=== PATIENT | female | born 1970 | race Caucasian/White ===

== ENCOUNTER 2017-01-10 13:54 | Emergency (ER) | payer OTHER, BC ==
[~2017-01-10] VITALS: Ht 167.6 cm; Wt 130.0 kg
[~2017-01-10 13:54] MED LIST: CIPR-255 PO
[2017-01-10 13:57] VITALS: TEMP 36.9; Ht 167.6 cm; Wt 130.0 kg
[2017-01-10] MEDS ORDERED: SODIUM CHLORIDE 0.9% 1000ML 1,000 ML IV SCH (14:20)
[2017-01-10 14:34] LABS: BASO % 0.4 %; BASO ABS # 0.02 K/uL (0-0.2); COMPLETE YES; EOS % 1.7 %; HEMATOCRIT 40.8 % (37-47); LYMPH % 26.1 %; MEAN CELL VOLUME 80.6 fL (80-100); MEAN CORPUSCULAR HEMOGLOBIN 26.3 pg (25-34); MEAN CORPUSCULAR HGB CONC 32.6 g/dl (32-36); MEAN PLATELET VOLUME 9.2 fL (7.4-10.4); MONO % 6.1 %; NEUT % 65.7 %; PLATELET COUNT 193 K/uL (130-400); RED BLOOD COUNT 5.06 M/uL (4.2-5.4)
[2017-01-10 14:35] VITALS: O2SAT 94
[2017-01-10 14:40] LABS: CALCIUM 8.9 mg/dl (8.5-10.1); CREATININE 0.74 mg/dl (0.60-1.20); POTASSIUM 3.6 mmol/L (3.5-5.1)
[2017-01-10 14:43] LABS: PARTIAL THROMBOPLASTIN RATIO 1.1; PROTHROMBIN TIME (PATIENT) 10.5 SECONDS (9.0-12.0)
[2017-01-10] MEDS ORDERED: FERR1TAB13 PO (14:49)
--- NOTE | 2017-01-10 15:37 | DIAGNOSTIC IMAGING REPORT ---
CT SCAN OF THE BRAIN WITHOUT IV CONTRAST CLINICAL HISTORY: Strokelike symptoms. Right facial numbness. COMPARISON STUDY: No priors. TECHNIQUE: Unenhanced axial CT scan of the brain is performed from the vertex to the skull base. A dose lowering technique was utilized adhering to the principles of ALARA. CT DOSE: 1915.68 mGycm FINDINGS: Brain parenchyma: The brain parenchyma is normal in appearance. There is no hemorrhage, mass effect, or evidence of acute territorial ischemia by CT criteria. Zabala-white matter is preserved. No extra-axial fluid collection is seen. Ventricles, sulci, cisterns: Normal in configuration. Intracranial vasculature: The visualized intracranial vasculature at the skull base is normal in appearance. Calvarium: Unremarkable. Sinuses and mastoids: The visualized paranasal sinuses are clear. The mastoid air cells are well pneumatized. Orbits: The bony orbits are grossly intact. IMPRESSION: There is no hemorrhage, mass effect, or evidence of acute territorial ischemia by CT criteria. Electronically signed by: Crow Mead M.D. 01/10/2017 3:36 PM Dictated Date/Time: 01/10/2017 3:34 PM
[2017-01-10 17:05] LABS: LYME DISEASE AB IGG NEG (NEG); LYME DISEASE AB IGM NEG (NEG)
[2017-01-10 17:20] VITALS: BP 137/98; PULSE 97; O2SAT 96
--- NOTE | 2017-01-10 20:01 | EMERGENCY ROOM VISIT NOTE ---
History Report prepared by Edgardo: Joni Colbert Under the Supervision of: Dr. Jason Franklin M.D. First contact with patient: 14:12 Chief Complaint: NEURO SYMPTOMS Stated Complaint: RT SIDE FACIAL NUMBNESS Nursing Triage Summary: pt ambulatory to room a12a. pt reports right sided facial numbness that started yesterday between [id number], numbness went away but returned again at approx 1100 today. History of Present Illness The patient is a 46 year old female who presents to the Emergency Room with complaints of intermittent right sided lower facial numbness that began yesterday evening. At this time, her right lower face began to experience a "pins and needles" sensation with some mild numbness. She describes this similarly to a Dentist using Novocaine. Her numbness last night was mildly waxing and waning but ended by the time she went to sleep. However, the sensation came back at 11 am this morning. She notes that her tongue feels "thick" on her right side. She denies any other numbness, facial droop, weakness , or trouble walking/talking/thinking/swallowing. She also denies any tick bites or rashes. She notes that she occasionally gets a mid-brow pressure-like sinus headache, but did not have one today. 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 Her current numbness symptoms have never happened to her before. Source of History: patient Onset: yesterday evening Position: head (right lower face) Symptom Intensity: mild Quality: numbness Timing: intermittent Associated Symptoms: No headache, No weakness, No rash Note: She denies any trouble talking/walking/speaking/thinking. Review of Systems See HPI for pertinent positives & negatives. A total of 10 systems reviewed and were otherwise negative. Past Medical & Surgical Medical Problems: (1) Non-Hodgkin lymphoma (2) Sepsis (3) Tachycardia with 141 - 160 beats per minute (4) Upper abdominal pain Family History Diabetes mellitus Social History Smoking Status: Never Smoker Smokeless Tobacco Use: No Drug Use: none Marital Status: Housing Status: lives with family Occupation Status: employed Current/Historical Medications Scheduled Ferrous Sulfate (Kp Ferrous Sulfate), 1 TAB PO TID Allergies Coded Allergies: Erythromycin (Verified Adverse Reaction, Mild, NAUSEA AND VOMITING, ) Hydrocodone (Verified Adverse Reaction, Mild, NAUSEA AND VOMITING, 10/26/15 ) Physical Exam Vital Signs Date Time Temp Pulse Resp B/P (MAP) Pulse Ox O2 Delivery O2 Flow Rate FiO2 01/10/17 17:20 97 20 137/98 96 01/10/17 16:05 108 20 148/100 96 Room Air 01/10/17 14:38 97 01/10/17 14:36 104 18 130/91 96 Room Air 01/10/17 14:35 94 Room Air 01/10/17 13:57 36.9 112 20 159/117 97 Room Air Physical Exam Constitutional: Vital signs reviewed. Eyes: Pupils are equal round reactive to light. Conjunctiva are noninjected. ENT: Pharynx is clear without erythema or exudate. Mucous membranes are moist. Neck supple without meningeal signs. Respiratory: Clear to auscultation bilaterally. Breath sounds are equal bilaterally. Cardiovascular: Regular rate and rhythm. No rubs or gallops. GI: Soft, nondistended and nontender. Bowel sounds are present. Musculoskeletal: No peripheral edema. No lower extremity tenderness. Integumentary: No cyanosis. Neurological: The patient is awake and alert. Cranial nerves II-XII are intact. Motor is 5 out of 5 all extremities. Sensation is intact to light touch all extremities. Normal speech. No pronator drift. Psychiatric: Normal affect. Medical Decision & Procedures ER Provider Diagnostic Interpretation: Radiology results as stated below per my review and the radiologist's interpretation: CT SCAN OF THE BRAIN WITHOUT IV CONTRAST CLINICAL HISTORY: Strokelike symptoms. Right facial numbness. COMPARISON STUDY: No priors. TECHNIQUE: Unenhanced axial CT scan of the brain is performed from the vertex to the skull base. A dose lowering technique was utilized adhering to the principles of ALARA. CT DOSE: 1915.68 mGycm FINDINGS: Brain parenchyma: The brain parenchyma is normal in appearance. There is no hemorrhage, mass effect, or evidence of acute territorial ischemia by CT criteria. Zabala-white matter is preserved. No extra-axial fluid collection is seen. Ventricles, sulci, cisterns: Normal in configuration. Intracranial vasculature: The visualized intracranial vasculature at the skull base is normal in appearance. Calvarium: Unremarkable. Sinuses and mastoids: The visualized paranasal sinuses are clear. The mastoid air cells are well pneumatized. Orbits: The bony orbits are grossly intact. IMPRESSION: There is no hemorrhage, mass effect, or evidence of acute territorial ischemia by CT criteria. Electronically signed by: Crow Mead M.D. 01/10/2017 3:36 PM Dictated Date/Time: 01/10/2017 3:34 PM Laboratory Results 01/10/17 14:12 Red Blood Count 5.06, Mean Corpuscular Volume 80.6, Mean Corpuscular Hemoglobin 26.3, Mean Corpuscular Hemoglobin Concent 32.6, Mean Platelet Volume 9.2, Neutrophils (%) (Auto) 65.7, Lymphocytes (%) (Auto) 26.1, Monocytes (%) (Auto) 6.1, Eosinophils (%) (Auto) 1.7, Basophils (%) (Auto) 0.4, Neutrophils # (Auto) 3.02, Lymphocytes # (Auto) 1.20, Monocytes # (Auto) 0.28, Eosinophils # (Auto) 0.08, Basophils # (Auto) 0.02 01/10/17 14:12 Test 01/10/17 14:12 White Blood Count 4.60 K/uL (4.8-10.8) Red Blood Count 5.06 M/uL (4.2-5.4) Hemoglobin 13.3 g/dL (12.0-16.0) Hematocrit 40.8 % (37-47) Mean Corpuscular Volume 80.6 fL (80-100) Mean Corpuscular Hemoglobin 26.3 pg (25-34) Mean Corpuscular Hemoglobin Concent 32.6 g/dl (32-36) Platelet Count 193 K/uL (130-400) Mean Platelet Volume 9.2 fL (7.4-10.4) Neutrophils (%) (Auto) 65.7 % Lymphocytes (%) (Auto) 26.1 % Monocytes (%) (Auto) 6.1 % Eosinophils (%) (Auto) 1.7 % Basophils (%) (Auto) 0.4 % Neutrophils # (Auto) 3.02 K/uL (1.4-6.5) Lymphocytes # (Auto) 1.20 K/uL (1.2-3.4) Monocytes # (Auto) 0.28 K/uL (0.11-0.59) Eosinophils # (Auto) 0.08 K/uL (0-0.5) Basophils # (Auto) 0.02 K/uL (0-0.2) RDW Standard Deviation 50.1 fL (36.4-46.3) RDW Coefficient of Variation 16.9 % (11.5-14.5) Immature Granulocyte % (Auto) 0.0 % Immature Granulocyte # (Auto) 0.00 K/uL (0.00-0.02) Prothrombin Time 10.5 SECONDS (9.0-12.0) Prothromb Time International Ratio 1.0 (0.9-1.1) Activated Partial Thromboplast Time 28.0 SECONDS (21.0-31.0) Partial Thromboplastin Ratio 1.1 Anion Gap 7.0 mmol/L (3-11) Est Creatinine Clear Calc Drug Dose 132.7 ml/min Estimated GFR () 113.4 Estimated GFR (Non- 97.8 BUN/Creatinine Ratio 13.0 (10-20) Calcium Level 8.9 mg/dl (8.5-10.1) Lyme Disease IgG Antibody NEG (NEG) Lyme Disease IgM Antibody NEG (NEG) Laboratory results as reviewed by me. Medications Administered Medications (Trade) Dose Ordered Sig/Anika Route Start Time Stop Time Status Last Admin Dose Admin Sodium Chloride 1,000 ml @ 50 mls/hr Q20H IV 01/10/17 14:20 01/10/17 18:49 DC 01/10/17 14:38 50 MLS/HR ECG Indication: other (Neuro symptoms) Rate (beats per minute): 100 Rhythm: normal sinus Findings: no acute ischemic change, no ectopy ED Course 1412: The patient was evaluated in room A12A. A complete history and physical exam was performed. 1420: Ordered Sodium Chloride 1000 ml @ 50 mls/hr IV 1620: Upon reevaluation, the patient's numbness is almost gone. She still has a small amount toward her right eye. 1630: I spoke with Dr. Darden of Neurology at this time. He believes that this is not a stroke and the patient should follow up in the clinic soon. The patient is happy with this plan. We are still waiting for her lyme test results. 1713: I reviewed return instructions with the patient. Upon reevaluation, the patient appeared to have improvement of her symptoms. I discussed tonight's findings with her. She verbalized agreement of the treatment plan. She was discharged home. Medical Decision This is a 46-year-old female who presents with numbness to the right side of her lower face. Differential diagnosis includes paresthesias, demyelinating disease, intracranial mass, metabolic derangement, Lyme disease, Bailey's palsy, CVA. I did perform a limited focused review of portions of the patient's old chart on the electronic medical record. The patient has had no recent pertinent visits to this hospital. I did evaluate the patient as noted above. The patient is neurologically intact. She has no deficits on my examination. She does have a subjective feeling of dysesthesia to the lower half of her right face. IV access was established. The patient was placed on a continuous manager monitoring. I did order and personally review the patient's 12-lead EKG as described above. I did order and review the patient's blood work as noted in the electronic medical record. Lyme testing is negative. I did order a CT of the head. I did review the images myself as well as the radiology report as described above. There is no evidence of acute abnormality. I did reassess the patient. She states the numbness is almost resolved. She just has a slight bit of dysesthesia near her eye. I did discuss the test results with her. I did recommend close follow up with neurology. I did review discharge instructions with her. I did discuss case with Dr. Darden of neurology who will be able to follow up with her in the clinic. She was discharged in good condition. Medication Reconcilliation Current Medication List: was personally reviewed by me Blood Pressure Screening Patient's blood pressure: Elevated blood pressure Blood pressure disposition: Referred to PCP Consults Time Called: 1625 Consulting Physician: Dr. Darden - Neurology Returned Call: 1630 We discussed the patient's case. They believe that it is not a stroke. They recommended the patient follow up in the clinic in the near future. Impression Primary Impression: Dysesthesia of face Scribe Attestation The scribe's documentation has been prepared under my direct and personally reviewed by me in its entirety. I confirm that the note above accurately reflects all work, treatment, procedures, and medical decision making performed by me. Departure Information Dispostion Home / Self-Care Referrals Venita Godoy D.O. (PCP) Adelso, Margarito A., M.D. Forms HOME CARE DOCUMENTATION FORM, IMPORTANT VISIT INFORMATION, WORK / SCHOOL INSTRUCTIONS Patient Instructions ED Paraesthesias, My [facility] Additional Instructions You have been examined and treated today on an emergency basis only. This is not a substitute for, or an effort to provide, complete comprehensive medical care. It is impossible to recognize and treat all injuries or illnesses in a single emergency department visit. It is therefore important that you follow up closely with your physician and Dr. Darden of neurology. Call as soon as possible for an appointment. Return for worsening symptoms or if you develop fever, numbness or weakness on one side of your body, difficulties with your speech or walking, facial droop or any other concerning symptoms.
== END 2017-01-10 17:22 | disposition home or self-care (01) ==
LOC: C.EDB 13:56 → C.EDA 17:22
DX: R20.8 Other disturbances of skin sensation (principal); C85.91 Non-Hodgkin lymphoma, unspecified, lymph nodes of head, face, and neck; Z83.3 Family history of diabetes mellitus

== ENCOUNTER → 2017-03-16 | Outpatient (CLI) | payer OTHER, BC ==
[~2017-03-16] MED LIST changes: -CIPR-255 PO; +FERR1TAB13 PO
--- NOTE | 2017-03-17 17:05 | EEG Procedure Note ---
EEG Procedure Note Date of Service Mar 16, 2017. Start / End Times Start Time: 9:14 AM End Time: 9:35 AM Referring Physician Margarito Darden History This is a 46-year-old female with right facial numbness and tingling and a history of a left temporal bone lesion. EEG for further evaluation of possible focal seizures. Home Medication List Scheduled Ferrous Sulfate (Kp Ferrous Sulfate), 1 TAB PO TID Description This is a 21 electrode EEG with a single channel dedicated to limited EKG. The electrodes were placed in accordance with the International 10-20 system. At the start of the recording the patient was in an awake state. Background was well organized and composed of symmetric mixed alpha and beta frequencies. There was a symmetric well-formed moderate amplitude 9-10Hz posterior dominant rhythm that was reactive to eye opening and closure. Hyperventilation was not done. Intermittent photic stimulation at various frequencies produced no abnormalities. Sleep sleep was indicated by symmetric sleep spindles. Interpretation This is a normal awake and asleep routine EEG. There was no electrographic seizures, focal slowing or epileptiform discharges. Clinical Correlation A normal EEG does not rule out epilepsy if there is a strong clinical suspicion.
== END | disposition home or self-care (01) ==
LOC: C.NEUR 08:55
PROVIDERS: ATTEND Psychiatry & Neurology Neurology
DX: R20.0 Anesthesia of skin (principal); R20.2 Paresthesia of skin

== ENCOUNTER → 2017-03-23 | Outpatient (CLI) | payer OTHER, BC ==
[~2017-03-23] MED LIST changes: +ALBU18002 INH; +AMOX875T PO; +CHOL1000 PO; +DICY10CA12 PO; +ERGO500037 PO; +GADAVIST IV PRN
--- NOTE | 2017-03-23 13:46 | DIAGNOSTIC IMAGING REPORT ---
NECK MRA HISTORY: Right facial numbness. 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 All measurements were calculated based on NASCET criteria. COMPARISON STUDY: None. FINDINGS: The aortic arch and proximal great vessels are widely patent. There is no significant stenosis, occlusion, or dissection identified within the bilateral common carotid, internal carotid, or vertebral arteries. IMPRESSION: No significant stenosis, occlusion, or dissection identified within the carotid or vertebral arteries. Electronically signed by: Darrell Stuart M.D. 03/23/2017 1:45 PM Dictated Date/Time: 03/23/2017 1:41 PM
--- NOTE | 2017-03-23 22:30 | DIAGNOSTIC IMAGING REPORT ---
MR ANGIOGRAM OF THE BRAIN CLINICAL HISTORY: Strokelike symptoms. Right facial numbness. COMPARISON STUDY: MRI of the brain dated 01/25/2017. TECHNIQUE: 3-D [id number] MR angiography of the intracranial circulation is performed. 3-D tumble views are created and assessed. IV contrast was not administered for this examination. FINDINGS: The internal carotid arteries are widely patent bilaterally, as are the anterior and middle cerebral arteries. The vertebrobasilar system and posterior cerebral arteries are widely patent. The vertebral arteries are codominant. There is no aneurysm, high-grade stenosis, or focal vessel cutoff seen throughout the intracranial circulation. The brain parenchyma is normal as visualized. IMPRESSION: Unremarkable MR angiogram of the brain. Electronically signed by: Crow Mead M.D. 03/23/2017 10:28 PM Dictated Date/Time: 03/23/2017 10:27 PM
== END | disposition home or self-care (01) ==
LOC: C.MRI 12:35
PROVIDERS: ATTEND Psychiatry & Neurology Neurology
DX: G46.3 Brain stem stroke syndrome (principal)

== ENCOUNTER → 2017-06-21 | Day surgery (SDC) | payer OTHER, BC ==
[2017-06-09 08:25] VITALS: BMI 45.0
[~2017-06-21] VITALS: Ht 167.6 cm; Wt 127.3 kg
[~2017-06-21] MED LIST changes: -AMOX875T PO; -CHOL1000 PO; -DICY10CA12 PO; -ERGO500037 PO; -GADAVIST IV PRN; +LIDOCAINE HCL 2% 2 ML VIAL (20MG/ML) ONE; +MIDAZOLAM HCL 1 MG/ML 2ML VIAL ONE; +PROPOFOL IV EMULSION 10 MG/ML 20 ML VIAL IV ONE; +SODIUM CHLORIDE 0.9% 500ML 500 ML IV ONE
[2017-06-21 13:07] VITALS: Ht 167.6 cm; Wt 127.3 kg
--- NOTE | 2017-06-21 13:30 | Endo History and Physical ---
History & Physical Date of Service: Jun 21, 2017. Chief Complaint: Referring Physician: History of Present Illness Hx of recurrent diverticulitis, last one in 04/2017 Past Medical History Gynecological Problems, Cancer Past Surgical History Hx Cardiac Surgery: No Hx Internal Defibrillator: No Hx Pacemaker: No Hx Abdominal Surgery: Yes (EXPLORATORY LAP) Hx of Implantable Prosthesis: No Hx Post-Op Nausea and Vomiting: Yes Hx Cancer Surgery: Yes (FINE NEEDLE ASPIRATION, THROAT LESION BIOPSY) Hx Thoracic Surgery: No Hx Orthopedic: No Hx Urinary Tract Surgery: No Family History None Social History Smoking Status: Never Smoker Hx Substance Use: No Hx Alcohol Use: Yes (OCCASIONAL) Allergies Coded Allergies: Erythromycin (Verified Adverse Reaction, Mild, NAUSEA AND VOMITING, ) Hydrocodone (Verified Adverse Reaction, Mild, NAUSEA AND VOMITING, 06/09/17 ) Current Medications Reported Home Medications Medications Dose Route/Sig Max Daily Dose Days Date Category Dose Instructions Proair Respiclick (Albuterol Sulfate) 108 Mcg/Act Aer 2 Puffs INH Q4H PRN 06/09/17 Reported Kp Ferrous Sulfate (Ferrous Sulfate) 325 Mg Tab 1 Tab PO DAILY 01/10/17 Reported TAKES WHEN REMEMBERS Vital Signs Weight (Kilograms): 127.27 Height (Feet): 5 Height (Inches): 6 Physical Exam General Appearance: no apparent distress Respiratory/Chest: Auscultation: breath sounds normal Cardiovascular: Heart Auscultation: RRR Abdomen: Inspection & Palpation: soft Liver: non-tender Assessment and Plan Stable for colonoscopy
--- NOTE | 2017-06-21 14:57 | GI REPORT ---
Procedure Date: 06/21/2017 2:26 PM Procedure: Colonoscopy Indications: Follow-up of diverticulitis Medicines: Monitored Anesthesia Care Complications: No immediate complications. Estimated Blood Loss: Estimated blood loss: none. Procedure: Pre-Anesthesia Assessment: - Prior to the procedure, a History and Physical was performed, and patient medications and allergies were reviewed. The patient is competent. The risks and benefits of the procedure and the sedation options and risks were discussed with the patient. All questions were answered and informed consent was obtained. Patient identification and proposed procedure were verified by the physician and the nurse in the procedure room. Mental Status Examination: alert and oriented. Airway Examination: normal oropharyngeal airway and neck mobility. Respiratory Examination: clear to auscultation. CV Examination: normal. ASA Grade Assessment: II - A patient with mild systemic disease. After reviewing the risks and benefits, the patient was deemed in satisfactory condition to undergo the procedure. The anesthesia plan was to use monitored anesthesia care (MAC). Immediately prior to administration of medications, the patient was re-assessed for adequacy to receive sedatives. The heart rate, respiratory rate, oxygen saturations, blood pressure, adequacy of pulmonary ventilation, and response to care were monitored throughout the procedure. The physical status of the patient was re-assessed after the procedure. After I obtained informed consent, the scope was passed under direct vision. Throughout the procedure, the patient's blood pressure, pulse, and oxygen saturations were monitored continuously. The scope was introduced through the anus and advanced to the terminal ileum. The colonoscopy was performed without difficulty. The patient tolerated the procedure well. The quality of the bowel preparation was good. The terminal ileum, ileocecal valve, appendiceal orifice, and rectum were photographed. Findings: The perianal and digital rectal examinations were normal. The terminal ileum appeared normal. An area of granular mucosa was found in the cecum. Biopsies were taken with a cold forceps for histology. Verification of patient identification for the specimen was done by the physician and nurse using the patient's name and date. Scattered small and large-mouthed diverticula were found in the sigmoid colon. Non-bleeding internal hemorrhoids were found during retroflexion. The hemorrhoids were small. Impression: - The examined portion of the ileum was normal. - Granularity in the cecum. Biopsied. - Diverticulosis in the sigmoid colon. - Non-bleeding internal hemorrhoids. Recommendation: - Discharge patient to home. - Await pathology results. - Repeat colonoscopy in 5 years for screening purposes. - Return to referring physician. - High fiber diet. - Use fiber, for example Citrucel, Fibercon, Konsyl or Metamucil. Randall Negron MD 06/21/2017 2:57:08 PM This report has been signed electronically. Note Initiated On: 06/21/2017 2:26 PM I attest to the content of the Intraoperative Record and orders documented therein, exceptions below
--- NOTE | 2017-06-21 14:58 | Discharge Instructions ---
Endoscopy Patient Instructions Date / Procedure(s) Performed Jun 21, 2017. Colonoscopy Allergy Information Coded Allergies: Erythromycin (Verified Adverse Reaction, Mild, NAUSEA AND VOMITING, ) Hydrocodone (Verified Adverse Reaction, Mild, NAUSEA AND VOMITING, 06/09/17 ) Discharge Date / Findings Jun 21, 2017. Diverticulosis. Provider Instructions Activity Restrictions - No exercising or heavy lifting for 24 hours. - Do not drink alcohol the day of the procedure. - Do not drive a car or operate machinery until the day after the procedure. - Do not make any important decisions or sign important papers in 24 hours after the procedure. Following Day: - Return to full activity which may include returning to work/school. Diet Start your diet with liquids and light foods (jello, soup, juice, toast). Then eat your usual diet if not nauseated. Treatment For Common After Affects For mild abdominal pain, bloating, or excessive gas: - Rest - Eat lightly - Lie on right side Follow-Up Information Follow-up with Dr. Venita Godoy as scheduled Anesthesia Information What You Should Know You have had a procedure that required some medicine to reduce anxiety and discomfort. This treatment is called moderate sedation. After receiving the treatment, you may be sleepy, but you will be able to breathe on your own. The effects of the treatment may last for several hours. Follow these instructions along with Activity/Diet recommendations noted above: * Do NOT do anything where dizziness or clumsiness would be dangerous. * Rest quietly at home today, then you can be up and about tomorrow. * Have a responsible person stay with you the rest of today. * You may have had an I.V. today. If so, you may take the dressing off later today. Recommendations Call your doctor if: * Trouble breathing * Continuous vomiting for more than 24 hours * Temperature above 101 degrees * Severe abdominal pain or bloating * Pain not relieved by pain medicine ordered * There is increased drainage or redness from any incision * A large amount of rectal bleeding greater than 2-3 tablespoons. (If you had a polyp/s removed or have hemorrhoids, a small amount of blood - from the rectum is to be expected.) * You have any unanswered questions or concerns. IN THE EVENT OF A SERIOUS EMERGENCY, GO TO THE NEAREST EMERGENCY ROOM Your discharge instructions were prepared by provider Randall Negron. Patient Instructions Signature Page Annelise Maloney Patient (or Guardian) Signature/Date: I have read and understand the instructions given to me by my caregivers. Caregiver/RN/Doctor Signature/Date: The above-named patient and/or guardian has received patient instructions on this date. + Original Patient Signature Page (only) stays with chart. Please make copy for patient.
[2017-06-21 15:23] VITALS: BP 152/96; PULSE 91; O2SAT 100
--- NOTE | 2017-06-21 16:14 | Anesthesiology Progress Note ---
Anesthesia Post Op Note Date & Time Jun 21, 2017 at 16:14 Vital Signs Pain Intensity: 0 Vital Signs Past 12 Hours Date Time Temp Pulse Resp B/P (MAP) Pulse Ox O2 Delivery O2 Flow Rate FiO2 06/21/17 15:23 91 18 152/96 (114) 100 Room Air 06/21/17 15:08 90 18 162/100 (120) 100 Room Air 06/21/17 14:53 93 18 163/94 (117) 100 Room Air 06/21/17 13:34 36.7 92 18 150/92 (111) 98 Room Air Notes Mental Status: alert / awake / arousable, participated in evaluation Pt Amnestic to Procedure: Yes Nausea / Vomiting: adequately controlled Pain: adequately controlled Airway Patency, RR, SpO2: stable & adequate BP & HR: stable & adequate Hydration State: stable & adequate Anesthetic Complications: no major complications apparent
== END | disposition home or self-care (01) ==
LOC: C.GI 13:00
PROVIDERS: ATTEND Student in an Organized Health Care Education/Training Program
DX: K57.30 Diverticulosis of large intestine without perforation or abscess without bleeding (principal); E66.01 Morbid (severe) obesity due to excess calories; Z68.42 Body mass index [BMI] 45.0-49.9, adult; Z88.1 Allergy status to other antibiotic agents; Z88.5 Allergy status to narcotic agent; K64.8 Other hemorrhoids

== ENCOUNTER 2017-11-16 12:45 | Emergency (ER) | payer OTHER, BC ==
[~2017-11-16] VITALS: Ht 167.6 cm; Wt 125.0 kg
[~2017-11-16 12:45] MED LIST changes: -LIDOCAINE HCL 2% 2 ML VIAL (20MG/ML) ONE; -MIDAZOLAM HCL 1 MG/ML 2ML VIAL ONE; -PROPOFOL IV EMULSION 10 MG/ML 20 ML VIAL IV ONE; -SODIUM CHLORIDE 0.9% 500ML 500 ML IV ONE
[2017-11-16 12:52] VITALS: BP 174/87; PULSE 102; TEMP 37.2; O2SAT 98; Ht 167.6 cm; Wt 125.0 kg
--- NOTE | 2017-11-16 13:23 | EMERGENCY ROOM VISIT NOTE ---
History Report prepared by Edgardo: Eliot Caal Under the Supervision of: Dr. Bebeto Harper M.D. First contact with patient: 13:06 Chief Complaint: FLANK PAIN Stated Complaint: LT LWR QUADRANT PAIN, PROBABLE DIVERTICULITIS History of Present Illness The patient is a 47 year old female who presents to the Emergency Room with complaints of abdominal pain. The patient states she has a history of Diverticulitis. She states the past few days she has started to notice pain, so she called her PCP who advised she come to the ED to be examined. The patient states she typically takes antibiotics for this and has used Cipro, Flagyl, and Augmentin, all of which works. Pt denies LOC, headache, fevers, chills, diaphoresis, visual changes, neck pain , chest pain, breathing difficulties, nausea, vomiting, back pain, melena, hematochezia, urinary symptoms, numbness, weakness, lymphadenopathy, rash, or other complaints. Source of History: patient Onset: few days Position: abdomen Symptom Intensity: moderate Quality: ache Timing: constant Review of Systems See HPI for pertinent positives and negatives. A total of ten systems were reviewed and were otherwise negative. Constitutional: No fever, No chills Respiratory: No cough, No shortness of breath Cardiovascular: No chest pain Abdomen: + pain, No nausea, No vomiting, No diarrhea Genitourinary - Female: No dysuria, No urinary frequency, No urinary urgency , No urinary incontinence, No urinary retention, No hematuria Integumentary: No rash Past Medical & Surgical Medical Problems: (1) Anemia (2) Non-Hodgkin lymphoma (3) Sepsis (4) Tachycardia with 141 - 160 beats per minute (5) Upper abdominal pain Family History Diabetes mellitus Social History Smoking Status: Never Smoker Drug Use: none Marital Status: Housing Status: lives with family Occupation Status: employed Current/Historical Medications Scheduled Amoxicillin & Pot Clavulanate (Augmentin 875-125 mg), 875 MG PO BID Ferrous Sulfate (Kp Ferrous Sulfate), 1 TAB PO DAILY Scheduled PRN Albuterol Sulfate (Proair Respiclick), 2 PUFFS INH Q4H PRN for SOB/Wheezing Allergies Coded Allergies: Erythromycin (Verified Adverse Reaction, Mild, NAUSEA AND VOMITING, ) Hydrocodone (Verified Adverse Reaction, Mild, NAUSEA AND VOMITING, 06/09/17 ) Physical Exam Vital Signs Date Time Temp Pulse Resp B/P (MAP) Pulse Ox O2 Delivery O2 Flow Rate FiO2 11/16/17 12:52 37.2 102 17 174/87 98 Room Air Physical Exam GENERAL: Awake, alert, well-appearing, in no distress HENT: Normocephalic, atraumatic. Oropharynx unremarkable. EYES: Normal conjunctiva. Sclera non-icteric. NECK: Supple. No nuchal rigidity. FROM. No masses. RESPIRATORY: Clear to auscultation. No wheezes. No rales. Normal respiratory effort. CARDIAC: Normal rate. Normal rhythm. No murmurs. No rubs. Extremities warm and well perfused. Pulses equal. No JVD. GI: LLQ tenderness with palpation. Soft, non-distended. No rebound or guarding. No masses. RECTAL: Deferred. MUSCULOSKELETAL: Atraumatic. Chest examination reveals no tenderness. The back is symmetrical on inspection without obvious abnormality. There is no CVA tenderness to palpation. No joint edema. LOWER EXTREMITIES: Calves are equal size bilaterally and non-tender. No edema. No discoloration. NEURO: Normal sensorium. No sensory or motor deficits noted. SKIN: No rash or jaundice noted. Medical Decision & Procedures Medications Administered Medications (Trade) Dose Ordered Sig/Anika Route Start Time Stop Time Status Last Admin Dose Admin Amoxicillin/ Clavulanate Potassium (Augmentin Tab) 875 mg NOW ONCE PO 11/16/17 13:30 11/16/17 13:32 DC 11/16/17 13:37 875 MG Medical Decision Prior records/ancillary studies reviewed. Multiple episodes of diverticulitis noted. Triage Nursing notes reviewed and agree them. The patient's history was concerning for abdominal pain. Differential diagnosis: Etiologies such as diverticulitis,appendicitis, PUD, biliary pathology, UTI, pancreatitis, obstruction, mesenteric ischemia, aortic pathology, infections, inflammatory bowel disease, renal colic, as well as others were entertained. Physical examination findings: As above. No peritoneal findings. Clinically the patient looks well. She is afebrile. ER treatment provided: Conservative management discussed. Using shared decision making the patient elected for oral antibiotic treatment. On reassessment the patient felt better. Diagnostics interpreted by me: Deferred The patient has had diverticulitis numerous times in the past. She has also been treated conservatively without coming to the emergency department. She has done well with Augmentin as well as Cipro and Flagyl. I discussed treating her empirically given the history and findings on physical examination versus treating her with labs, IV treatment, and imaging. The patient feels very comfortable at this point treating this with oral medications and foregoing diagnostic testing. She agrees to come back to emergency department immediately if she worsens. Patient was educated. Return instructions were explicitly outlined. The patient was educated about her hypertension as well. She will monitor this and follow up with her PCP. By the evaluation outlined above other emergent etiologies such as those listed in the differential, as well as others, were deemed relatively unlikely. The patient was educated about the findings as listed above. All questions were answered and the patient was pleased with the treatment. Return instructions were outlined and the patient was discharged in stable condition. The patient was referred to her PCP for follow-up for a recheck of the current condition. Medication Reconcilliation Current Medication List: was personally reviewed by me Blood Pressure Screening Patient's blood pressure: Elevated blood pressure (Systolic BP was 170 when first entering room, after exam and discussion with patient re-check blood pressure 140) Blood pressure disposition: Referred to PCP (Patient counciled for in room regarding blood-pressure and ensuring she follows up with her PCP regarding this ) Impression Primary Impression: LLQ abdominal pain Additional Impression: Diverticulitis Scribe Attestation The scribe's documentation has been prepared under my direction and personally reviewed by me in its entirety. I confirm that the note above accurately reflects all work, treatment, procedures, and medical decision making performed by me. Departure Information Dispostion Home / Self-Care Prescriptions Amoxicillin & Pot Clavulanate (Augmentin 875-125 mg) 1 Tab Tab 875 MG PO BID for 10 Days, #19 TAB Prov: Bebeto Harper MD 11/16/17 Referrals Venita Godoy D.O. (PCP) Forms HOME CARE DOCUMENTATION FORM, IMPORTANT VISIT INFORMATION Patient Instructions My [facility] Additional Instructions Amoxicillin Clavulanate (Augmentin) 875mg: Take one pill twice daily for 10 days for your bowel infection. All antibiotics can cause diarrhea. If this occurs and you feel worse or it does not resolve in 1-2 days follow up with your doctor or return to the Emergency Department as this could be signs of serious underlying problems. Any medication can cause an allergic reaction, stop the pills immediately and return to the ER for rash, hives, breathing difficulties, or swelling. Ibuprofen(Motrin, Advil) may be used for fever or pain. Use 600mg every six hours as needed. Take with food. Avoid using more than 2400mg in a 24 hour period. Do not use 2400mg per day for more than three consecutive days without physician direction. Prolonged inappropriate use can lead to stomach upset or ulcers. (AND/OR) Acetaminophen(Tylenol) may be used for fever or pain. Use 1000mg every six hours as needed. Avoid using more than 4000mg in a 24 hour period. Rest and drink plenty of fluids as tolerated. Slow sips of water or sports drinks are recommended instead of large amounts all at once. Continue current medications. Once your stomach is settled start with a clear liquid diet (jello, soup broth, etc.) and then advance as tolerated. You should avoid full, heavy meals for about 24 hrs from the time your symptoms resolved. Return to the ER immediately for worsening or persistent abdominal pain, vomiting, fevers, chest pains, difficulty breathing, black or bloody stools, worsening of your condition, or as needed. Follow up with your primary physician in 2-3 days for a recheck of your current condition. Problem Qualifiers
[2017-11-16] MEDS ORDERED: AMOXICILLIN/CLAVULANATE TAB 875 MG TAB PO ONE (13:30)
[2017-11-16] MEDS ORDERED: AMOX875T PO (13:45)
== END 2017-11-16 14:01 | disposition home or self-care (01) ==
LOC: C.EDB 12:46 → C.EDA 14:01
DX: R10.32 Left lower quadrant pain (principal); K57.92 Diverticulitis of intestine, part unspecified, without perforation or abscess without bleeding; Z87.19 Personal history of other diseases of the digestive system; Z85.72 Personal history of non-Hodgkin lymphomas; Z88.1 Allergy status to other antibiotic agents; Z88.5 Allergy status to narcotic agent

== ENCOUNTER 2017-11-20 10:30 | Emergency (ER) | payer OTHER, BC ==
[~2017-11-20] VITALS: Ht 167.6 cm; Wt 124.0 kg
[~2017-11-20 10:30] MED LIST changes: +AMOX875T PO
[2017-11-20 10:35] VITALS: TEMP 36.5; Ht 167.6 cm; Wt 124.0 kg
[2017-11-20] MEDS ORDERED: SODIUM CHLORIDE 0.9% 1000ML 1,000 ML IV ONE (11:01)
[2017-11-20] MEDS ORDERED: SODIUM CHLORIDE 0.9% 1000ML 1,000 ML IV STA (11:01)
--- NOTE | 2017-11-20 11:05 | EMERGENCY ROOM VISIT NOTE ---
History Report prepared by Edgardo: Jen Escobedo Under the Supervision of: Dr. Margarito Baldwin M.D. First contact with patient: 10:53 Chief Complaint: ABDOMINAL PAIN Stated Complaint: ABDOMINAL PAIN WAS SEEN TUESDAY IN [facility] History of Present Illness The patient is a 47 year old female who presents to the Emergency Room with complaints of left abdominal pain that waxes and wanes, describing it as " spasms of pain" that began 6 days ago. The patient's symptoms began as center abdominal pain six days ago. Five days ago, the pain shifted to the left side, and she came into the ED four days ago and was discharged with Augmentin. The patient states that she's had soft stool that has decreased in frequency. She notes that she typically has a bowel movement every day, but she reports that she has been having a bowel movement every two days since her symptoms began. The patient denies any current pain. She also denies any chest pain, SOB, headache, dysuria, hematuria, and recent fall or trauma. She has a history of diverticulitis, which has been treated with antibiotics. She reports that her previous symptoms feel similar to her past diverticulitis flare ups. The patient has a history of non-Hodgkins lymphoma, and she is currently in remission. She states that there is no chance of . Source of History: patient Onset: 6 days ago Position: abdomen (left-sided) Quality: other ("spasms of pain") Timing: waxes/wanes Associated Symptoms: No headache, No chest pain, No SOB, No urinary symptoms Note: The patient complains of soft stool that has decreased in frequency. She denies recent fall and trauma. Review of Systems See HPI for pertinent positives & negatives. A total of 10 systems reviewed and were otherwise negative. Past Medical & Surgical Medical Problems: (1) Anemia (2) Diverticulitis (3) Non-Hodgkin lymphoma (4) Sepsis (5) Tachycardia with 141 - 160 beats per minute (6) Upper abdominal pain Surgical Problems: (1) [place] teeth extracted Old medical records were reviewed. Nurse's notes were reviewed and I agree with. Family History Diabetes mellitus FH: lung disease FHx: cancer FHx: gallbladder disease Hypertension Kidney disease Kidney stones Social History Smoking Status: Never Smoker Drug Use: none Marital Status: Housing Status: lives with family Occupation Status: employed Current/Historical Medications Scheduled Amoxicillin & Pot Clavulanate (Augmentin 875-125 mg), 875 MG PO BID Cholecalciferol (Vitamin D3), 1 TAB PO DAILY Ergocalciferol (Vitamin D 43198 Unit), 1 CAP PO WK Ferrous Sulfate (Kp Ferrous Sulfate), 1 TAB PO DAILY Scheduled PRN Albuterol Sulfate (Proair Respiclick), 2 PUFFS INH Q4H PRN for SOB/Wheezing Dicyclomine Hcl (Dicyclomine Hcl), 1 CAP PO Q6H PRN for Severe Pain Allergies Coded Allergies: Erythromycin (Verified Adverse Reaction, Mild, NAUSEA AND VOMITING, ) Hydrocodone (Verified Adverse Reaction, Mild, NAUSEA AND VOMITING, 06/09/17 ) Physical Exam Vital Signs Date Time Temp Pulse Resp B/P (MAP) Pulse Ox O2 Delivery O2 Flow Rate FiO2 11/20/17 14:15 88 20 165/95 98 Room Air 11/20/17 12:15 84 18 127/74 98 Room Air 11/20/17 10:35 36.5 106 18 163/114 99 Room Air Physical Exam General: Non-ill appearing middle-ages female in no acute distress. HEENT: Normal cephalic atraumatic. Pupils are equal round and reactive to light. Extraocular movements are intact. Oropharynx is pink with moist mucous membranes. No swelling of the mouth lips or tongue. Neck: Supple with a midline trachea. No meningeal signs or stiffness, no JVD or bruits. No Stridor. Chest: Clear to auscultation bilaterally. No wheezes or rhonchi. No increased work of breathing. Heart: regular rate and rhythm. Abdomen: Moderately tender LLQ, nondistended without rebound guarding or rigidity. Extremities: No cyanosis clubbing or edema. No calf tenderness or assymetry Spine/Back. Non tender to palpation. No CVA tenderness Skin: Good turgor without rashes. Neurologic exam: Cranial nerves two through 12 are intact. Motor and sensation are intact and symmetrical throughout. Medical Decision & Procedures ER Provider Diagnostic Interpretation: Radiology results as stated below per my review and radiologist interpretation: ABDOMEN AND PELVIS CT WITH IV CONTRAST FINDINGS: Lung bases appear generally clear. No pneumatosis or pneumoperitoneum. Imaged inferior cardiac chambers are unremarkable. Gallbladder is within normal limits. Suggested fatty infiltration of the liver with mild hepatomegaly. Spleen is also mildly enlarged, 13.8 cm. Pancreas and adrenal glands are within normal limits. Kidneys, ureters and bladder are within normal limits. Mild prominence of the uterus and left adnexum appear unchanged with suggested follicular changes of the left ovary. Aorta and IVC are within normal limits. No pathologically enlarged lymph nodes identified. There is no bowel obstruction. Moderate wall thickening with pericolonic inflammatory stranding involves the distal descending and proximal sigmoid colon compatible with acute diverticulitis. No drainable fluid collection or evidence of perforation. Terminal ileum appears unremarkable. The appendix appears noninflamed within the abdominal right lower quadrant. Soft tissues are within normal limits. The imaged breast parenchyma is unremarkable. 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 Mild degenerative changes of the SI joints. IMPRESSION: 1. Findings compatible with acute uncomplicated diverticulitis of the distal descending and proximal sigmoid colon . No drainable fluid collection or evidence of perforation. 2. Hepatosplenomegaly with suggested hepatic steatosis. 3. No evidence of acute appendicitis. 4. Additional findings as above. Electronically signed by: Matt Bruce M.D. 11/20/2017 12:31 PM Laboratory Results 11/20/17 11:18 Red Blood Count 4.54, Mean Corpuscular Volume 79.1, Mean Corpuscular Hemoglobin 25.3, Mean Corpuscular Hemoglobin Concent 32.0, Mean Platelet Volume 9.0, Neutrophils (%) (Auto) 69.2, Lymphocytes (%) (Auto) 21.9, Monocytes (%) (Auto) 6.8, Eosinophils (%) (Auto) 1.6, Basophils (%) (Auto) 0.3, Neutrophils # (Auto) 3.98, Lymphocytes # (Auto) 1.26, Monocytes # (Auto) 0.39, Eosinophils # (Auto) 0.09, Basophils # (Auto) 0.02 11/20/17 11:18 Test 11/20/17 11:14 11/20/17 11:18 11/20/17 11:31 Urine Color DK YELLOW Urine Appearance CLEAR (CLEAR) Urine pH 5.0 (4.5-7.5) Urine Specific Labelle 1.028 (1.000-1.030) Urine Protein TRACE (NEG) Urine Glucose (UA) NEG (NEG) Urine Ketones TRACE (NEG) Urine Occult Blood NEG (NEG) Urine Nitrite NEG (NEG) Urine Bilirubin NEG (NEG) Urine Urobilinogen NEG (NEG) Urine Leukocyte Esterase NEG (NEG) Urine WBC (Auto) 1-5 /hpf (0-5) Urine RBC (Auto) 0-4 /hpf (0-4) Urine Hyaline Casts (Auto) 5-10 /lpf (0-5) Urine Epithelial Cells (Auto) 10-20 /lpf (0-5) Urine Bacteria (Auto) NEG (NEG) White Blood Count 5.75 K/uL (4.8-10.8) Red Blood Count 4.54 M/uL (4.2-5.4) Hemoglobin 11.5 g/dL (12.0-16.0) Hematocrit 35.9 % (37-47) Mean Corpuscular Volume 79.1 fL (80-100) Mean Corpuscular Hemoglobin 25.3 pg (25-34) Mean Corpuscular Hemoglobin Concent 32.0 g/dl (32-36) Platelet Count 185 K/uL (130-400) Mean Platelet Volume 9.0 fL (7.4-10.4) Neutrophils (%) (Auto) 69.2 % Lymphocytes (%) (Auto) 21.9 % Monocytes (%) (Auto) 6.8 % Eosinophils (%) (Auto) 1.6 % Basophils (%) (Auto) 0.3 % Neutrophils # (Auto) 3.98 K/uL (1.4-6.5) Lymphocytes # (Auto) 1.26 K/uL (1.2-3.4) Monocytes # (Auto) 0.39 K/uL (0.11-0.59) Eosinophils # (Auto) 0.09 K/uL (0-0.5) Basophils # (Auto) 0.02 K/uL (0-0.2) RDW Standard Deviation 46.6 fL (36.4-46.3) RDW Coefficient of Variation 16.0 % (11.5-14.5) Immature Granulocyte % (Auto) 0.2 % Immature Granulocyte # (Auto) 0.01 K/uL (0.00-0.02) Est Creatinine Clear Calc Drug Dose 139.0 ml/min Estimated GFR () 121.6 Estimated GFR (Non- 104.9 BUN/Creatinine Ratio 12.8 (10-20) Calcium Level 8.5 mg/dl (8.5-10.1) Total Bilirubin 0.3 mg/dl (0.2-1) Direct Bilirubin < 0.1 mg/dl (0-0.2) Aspartate Amino Transf (AST/SGOT) 15 U/L (15-37) Alanine Aminotransferase (ALT/SGPT) 24 U/L (12-78) Alkaline Phosphatase 82 U/L (45-117) Total Protein 7.3 gm/dl (6.4-8.2) Albumin 3.2 gm/dl (3.4-5.0) Lipase 95 U/L (73-393) Bedside Hemoglobin 11.2 g/dl (12.0-16.0) Bedside Hematocrit 33 % (37-47) Bedside Sodium 140 mEq/L (135-144) Bedside Potassium 3.8 mEq/L (3.3-5.0) Bedside Chloride 103 mEq/L (101-112) Bedside Total CO2 25 mEq/l (24-31) Anion Gap 16.0 mmol/L (16-25) Bedside Blood Urea Nitrogen 7 mg/dl (7-18) Bedside Creatinine 0.6 mg/dl (0.6-1.3) Bedside Glucose (other) 97 mg/dl (70-99) Bedside Ionized Calcium (Kamlesh) 1.16 mmol/l (1.12-1.32) Laboratory studies as stated above per my review. Medications Administered Medications (Trade) Dose Ordered Sig/Anika Route Start Time Stop Time Status Last Admin Dose Admin Sodium Chloride 1,000 ml @ 999 mls/hr Q1H1M STAT IV 11/20/17 11:01 11/20/17 12:01 DC 11/20/17 11:26 999 MLS/HR Sodium Chloride 1,000 ml @ 150 mls/hr Q6H40M ONCE IV 11/20/17 11:01 11/20/17 14:57 DC 11/20/17 11:26 150 MLS/HR ED Course 1054: Past medical records reviewed. The patient was evaluated in room C4, and a complete history and physical examination were performed. 1101: Sodium Chloride 1000 ml @ 150 mls/hr IV x2 1241: I reevaluated the patient. She was comfortable and wants to go home. 1304: I spoke with DARIA Dc from [facility]. He agreed with the plan , and recommended dicyclomine. 1401: I reevaluated the patient. She was comfortable and wanted to go home. 1431: Upon reevaluation, the patient is stable. I discussed the results and treatment plan with him. He verbalized agreement of the treatment plan. The patient was discharged home. Medical Decision Differential diagnosis includes: Diverticulitis, abbess, UTI, kidney stone, musculoskeletal. This patient comes in as described above. She was placed in room C4 she is having left lower quadrant abdominal pain. She has a history of diverticulitis she was seen here several days ago and was treated with Augmentin .she says since then she feels overall better but intermittently she does have some pain she has had no fever, she has had no trauma, she denies dysuria or hematuria. She did have an IV access established. she has no significant white count or fever. she has nothing to suggest that she has a UTI. She has normal renal function. CAT scan shows uncomplicated diverticulitis without abscess or drainable fluid. I did discuss case Dr. Nam and he agrees with continuing the Augmentin and recommended we could also give her prescription for dicyclomine which I did. She was encouraged to follow-up with her regular doctor next couple days for recheck and return to the ER if: Fever, increasing pain, worsening of symptoms, any new problems or concerns. They are happy with the plan and she was discharged to home. Medication Reconcilliation Current Medication List: was personally reviewed by me Blood Pressure Screening Patient's blood pressure: Elevated blood pressure Blood pressure disposition: Elevated BP felt to be situational Consults Time Called: 1258 Consulting Physician: DARIA Dc from [facility] Returned Call: 1304 I spoke with DARIA Dc from [facility]. He agreed with the plan, and recommended dicyclomine. Impression Primary Impression: Diverticulitis Additional Impression: Abdominal pain, left lower quadrant Scribe Attestation The scribe's documentation has been prepared under my direction and personally reviewed by me in its entirety. I confirm that the note above accurately reflects all work, treatment, procedures, and medical decision making performed by me. Departure Information Dispostion Home / Self-Care Prescriptions Dicyclomine Hcl (DICYCLOMINE HCL) 10 Mg Cap 1 CAP PO Q6H Y for Severe Pain for 3 Days, #12 CAP 0 Refills Prov: Margarito Baldwin M.D. 11/20/17 Referrals No Doctor, Assigned (PCP) Forms Call Back Authorization, HOME CARE DOCUMENTATION FORM, IMPORTANT VISIT INFORMATION Patient Instructions My [facility] Additional Instructions Rest. Drink plenty of fluids. Use Augmentin 875 mg twice a day, continue Use Dicyclomine 10 mg every 6 hours if needed for bowel spasms Return if: Fever, increasing pain, worsening symptoms, any new problems or concerns Follow-up with your doctor this week for recheck in the next couple days Problem Qualifiers
[2017-11-20] MEDS ORDERED: OPTIRAY 320 IV PRN (11:15)
[2017-11-20 11:28] LABS: BASO % 0.3 %; BASO ABS # 0.02 K/uL (0-0.2); EOS % 1.6 %; EOS ABS # 0.09 K/uL (0-0.5); HEMATOCRIT 35.9 % (37-47); HEMOGLOBIN 11.5 g/dL (12.0-16.0); IG# 0.01 K/uL (0.00-0.02); LYMPH % 21.9 %; LYMPH ABS # 1.26 K/uL (1.2-3.4); MEAN CELL VOLUME 79.1 fL (80-100); MEAN CORPUSCULAR HEMOGLOBIN 25.3 pg (25-34); MONO % 6.8 %; MONO ABS # 0.39 K/uL (0.11-0.59); NEUT % 69.2 %; NEUT ABS # 3.98 K/uL (1.4-6.5); PLATELET COUNT 185 K/uL (130-400); RED CELL DISTRIBUTION WIDTH SD 46.6 fL (36.4-46.3); WHITE BLOOD COUNT 5.75 K/uL (4.8-10.8)
[2017-11-20 11:39] LABS: ISTAT CREATININE 0.6 mg/dl (0.6-1.3); ISTAT IONIZED CALCIUM 1.16 mmol/l (1.12-1.32); ISTAT POTASSIUM 3.8 mEq/L (3.3-5.0)
[2017-11-20 11:47] LABS: ALBUMIN 3.2 gm/dl (3.4-5.0); ALKALINE PHOSPHATASE 82 U/L (45-117); ALT/SGPT 24 U/L (12-78); AST/SGOT 15 U/L (15-37); BLOOD UREA NITROGEN 9 mg/dl (7-18); CALCIUM 8.5 mg/dl (8.5-10.1); CARBON DIOXIDE 24 mmol/L (21-32); CREATININE 0.68 mg/dl (0.60-1.20); GLUCOSE 93 mg/dl (70-99); LIPASE 95 U/L (73-393); POTASSIUM 3.8 mmol/L (3.5-5.1); SODIUM 139 mmol/L (136-145); TOTAL PROTEIN 7.3 gm/dl (6.4-8.2)
[2017-11-20] MEDS ORDERED: ERGO500037 PO (11:54)
[2017-11-20] MEDS ORDERED: CHOL1000 PO (11:54)
--- NOTE | 2017-11-20 12:32 | DIAGNOSTIC IMAGING REPORT ---
ABDOMEN AND PELVIS CT WITH IV CONTRAST CT DOSE: 1518.94 mGy.cm HISTORY: Acute generalized abdominal pain with concern for acute diverticulitis. eval for diverticulitis, abcess TECHNIQUE: Multiaxial CT images of the abdomen and pelvis were performed following the use of intravenous contrast. A dose lowering technique was utilized adhering to the principles of ALARA. COMPARISON STUDY: CT abdomen and pelvis 10/26/2015 FINDINGS: Lung bases appear generally clear. No pneumatosis or pneumoperitoneum. Imaged inferior cardiac chambers are unremarkable. Gallbladder is within normal limits. Suggested fatty infiltration of the liver with mild hepatomegaly. Spleen is also mildly enlarged, 13.8 cm. Pancreas and adrenal glands are within normal limits. Kidneys, ureters and bladder are within normal limits. Mild prominence of the uterus and left adnexum appear unchanged with suggested follicular changes of the left ovary. Aorta and IVC are within normal limits. No pathologically enlarged lymph nodes identified. There is no bowel obstruction. Moderate wall thickening with pericolonic inflammatory stranding involves the distal descending and proximal sigmoid colon compatible with acute diverticulitis. No drainable fluid collection or evidence of perforation. Terminal ileum appears unremarkable. The appendix appears noninflamed within the abdominal right lower quadrant. Soft tissues are within normal limits. The imaged breast parenchyma is unremarkable. 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 Mild degenerative changes of the SI joints. IMPRESSION: 1. Findings compatible with acute uncomplicated diverticulitis of the distal descending and proximal sigmoid colon . No drainable fluid collection or evidence of perforation. 2. Hepatosplenomegaly with suggested hepatic steatosis. 3. No evidence of acute appendicitis. 4. Additional findings as above. Electronically signed by: Matt Bruce M.D. 11/20/2017 12:31 PM Dictated Date/Time: 11/20/2017 12:24 PM
[2017-11-20] MEDS ORDERED: DICY10CA12 PO (14:04)
[2017-11-20 14:15] VITALS: BP 165/95; PULSE 88; O2SAT 98
== END 2017-11-20 14:31 | disposition home or self-care (01) ==
LOC: C.EDB 10:32 → C.EDC 14:31
DX: K57.92 Diverticulitis of intestine, part unspecified, without perforation or abscess without bleeding (principal); Z87.19 Personal history of other diseases of the digestive system; Z85.72 Personal history of non-Hodgkin lymphomas; Z88.1 Allergy status to other antibiotic agents; Z88.6 Allergy status to analgesic agent

== ENCOUNTER 2018-09-30 23:42 | Inpatient (IN) ==
--- OUTSIDE RECORDS SUMMARY | 2018-09-30 23:45 | External Medical Summary | Continuity of Care Document ---
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 Refills: 0 Tylenol 325 MG Oral Tablet; TAKE 1 TO 2 TABLETS EVERY 4 HOUR S NEEDED Refills: 0 Vitamin D (Ergocalciferol) 34181 UNIT Oral Capsule; TAKE 1 C APSULE ONCE A WEEK Quantity: 8 Refills: 0 Procedures Procedures not documented Immunizations Immunizations not documented Family History Unknown Family Member Family history of diabetes mellitus (V18.0) Status: Active Comments: Family History (Z83.3) Father Family history of diabetes mellitus (V18.0) (Z83.3) Status: Active Mother Family history of High cholesterol (272.0) (E78.00) Status: Active Family history of hypertension (V17.49) (Z82.49) Status: Act vinay Social History - Smoking Status Never smoker Plan of Treatment Planned Encounters Appointment; Margarito Darden M.D. Start: 09-Nov-2018 11:15 Req uest Planned Observations Planned Goals not documented Results No Known Results Results not documented Encounters Appointment; Margarito Darden M.D. 07-Nov-2017 11:45 Encounter Diagnosis: Problem not documented Appointment; Margarito Darden M.D. 09-May-2017 11:15 Encounter Diagnosis: Problem not documented Appointment; Margarito Darden M.D. 07-Mar-2017 10:15 Encounter Diagnosis: Problem not documented Appointment; Margarito Darden M.D. 21-Jan-2017 10:00 Encounter Diagnosis: Problem not documented Appointment; Margarito Darden M.D. 09-Nov-2018 11:15 Encounter Diagnosis: Problem not documented
[2018-10-01] MEDS ORDERED: ONDANSETRON INJ 2 MG/ML 2 ML VIAL IV STA (00:01)
[2018-10-01] MEDS ORDERED: ACETAMINOPHEN 1,000 MG/100 ML VIAL IV STA ×2 (00:01→06:41)
[2018-10-01] MEDS ORDERED: SODIUM CHLORIDE 0.9% 1000ML 1,000 ML IV SCH (00:15)
[2018-10-01 00:32] LABS: Basophils # (auto) 0.01 K/uL (0-0.2); Basophils % (auto) 0.1 %; Eosinophils % (auto) 1.3 %; Hematocrit (blood only) 37.7 % (37-47); Hemoglobin 12.6 g/dL (12.0-16.0); Immature Granulocytes # (auto) 0.01 K/uL (0.00-0.02); Immature Granulocytes % (auto) 0.1 %; Lymphocytes # (auto) 1.61 K/uL (1.2-3.4); Lymphocytes % (auto) 21.3 %; Mean Corpuscular Hgb Conc 33.4 g/dL (32-36); Mean Corpuscular Volume 83.2 fL (80-100); Monocytes # (auto) 0.46 K/uL (0.11-0.59); Monocytes % (auto) 6.1 %; Neutrophils # (auto) 5.37 K/uL (1.4-6.5); Neutrophils % (auto) 71.1 %; Platelet Count 179 K/uL (130-400); RDW Standard Deviation 49.3 fL (36.4-46.3); Red Blood Count 4.53 M/uL (4.2-5.4); White Blood Count 7.56 K/uL (4.8-10.8)
[2018-10-01 00:46] LABS: Appearance Urine Cloudy (Clear); Bacteria Urine Automated Negative (Negative); Bilirubin Urine Negative (Negative); Blood Urine Negative (Negative); Color Urine Yellow; Epithelial Cell Urine Auto >30 /lpf (0-5); Glucose Urine UA Negative (Negative); Ketones Urine 1+ (Negative); Leukocyte Esterase Urine Negative (Negative); Nitrite Urine Negative (Negative); Protein Urine Negative (Negative); Specific Gravity Urine 1.033 (1.000-1.030); Urobilinogen Urine Negative (Negative)
[2018-10-01 00:53] LABS: Albumin Level 3.8 gm/dl (3.4-5.0); BUN Creatinine Ratio 11.7 (10-20); Calcium 8.6 mg/dl (8.5-10.1); Est GFR (African American) 123.4; Est GFR (Non-African American) 106.5; Magnesium 2.4 mg/dl (1.8-2.4); Potassium 3.4 mmol/L (3.5-5.1)
[2018-10-01 01:04] LABS: Bilirubin,Total 0.5 mg/dl (0.2-1); Globulin 3.7 gm/dl (2.5-4.0); Total Protein 7.5 gm/dl (6.4-8.2)
[2018-10-01 01:17] LABS: Calcium Oxalate Crystals Urine Present (None Prsent); Mucus Urine Present (None Prsent); RBC Urine Automated 0-4 /hpf (0-4)
[2018-10-01] MEDS ORDERED: IOVERSOL 100ml IV PRN (02:14)
[2018-10-01] MEDS ORDERED: metroNIDAZOLE 500 MG/100 ML BAG IV STA (03:18)
--- NOTE | 2018-10-01 03:51 | History & Physical Report ---
Date of Service October 01, 2018 Assessment & Plan (1) Appendicitis: She will be admitted with appendicitis and will proceed with upper laparoscopic appendectomy Possible open appendectomy. She does understand potential complications of bleeding infection Bowel/bladder injury. History of Present Illness Primary Care Provider: Venita Godoy DO Patient presents to the emergency room with lower abdominal pain. He has been treated recently for diverticulitis with Augmentin which was stopped after the patient experienced some tongue swelling. She did undergo CAT scan which showed evidence of acute appendicitis. She continues to have mild sigmoid inflammation. Have given her ciprofloxacin and Flagyl. White blood cell count is normal. She does have a history of lymphoma which she was treated with chemotherapy but no radiation therapy. Allergies Allergy/AdvReac Type Severity Reaction Status Date / Time amoxicillin [From Augmentin] Allergy Intermediate tongue Verified 10/01/18 00:14 swells clavulanic acid Allergy Intermediate tongue Verified 10/01/18 00:14 [From Augmentin] swells erythromycin base AdvReac Mild NAUSEA AND Verified 10/01/18 00:14 VOMITING hydrocodone AdvReac Mild NAUSEA AND Verified 10/01/18 00:14 VOMITING Home Medications Home Medications Medication Instructions Recorded Confirmed Type atenolol 25 mg PO DAILY 05/15/18 10/01/18 History Past Med/Surg History Social History Preferred Language: Malaysian Feels Safe at Home: Yes Smoking Status: Never smoker Review of Systems All systems reviewed & are unremarkable except as noted in HPI & below Physical Exam Physical Exam: Her HEENT exam is grossly normal she is awake and alert Neck is supple she is breathing comfortably. Her heart rate is regular. Her abdomen shows some mild discomfort to palpation in the lower abdomen her extremities are warm and well-perfused Results & Data Vital Signs (Past 12 Hours) Vital Signs Temp Pulse Pulse Resp BP BP Pulse Ox 10/01/18 01:38 94 H 18 139/75 97 09/30/18 23:47 36.7 C 102 H 22 159/105 H 99 I did review her CAT scan.
[2018-10-01] MEDS ORDERED: POTASSIUM CHLORIDE / WTR 10 MEQ/100 ML PLCT IV ONE (03:57)
[2018-10-01] MEDS ORDERED: CIPROFLOXACIN 400MG / 200ML D5W IV ONE (03:57)
[2018-10-01] MEDS ORDERED: LACTATED RINGER'S 1,000 ML IV SCH (04:15)
--- NOTE | 2018-10-01 04:32 | Hospitalist Consultation ---
Date of Consultation October 01, 2018 Assessment & Plan (1) Appendicitis: Final Assessment and Recommendations as follows : Acute appendicitis Recurrent diverticulitis status post antibiotic Rx Hypokalemia secondary to loose stools, poor p.o. intake NHL sp chemotherapy (currently in remission) inappropriate sinus tachycardia on beta-olamide Rx chronic anemia, hemoglobin better than baseline likely secondary to hemoconcentration MANUEL on CPAP Management of appendicitis as per surgery. 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 Dr. Cueto will follow patient's progress. History of Present Illness Reason for Consultation: Medical management Requesting Physician: Dr. Ga Attending Physician: Dr. Ga History of Present Illness PCP Dr. Venita Godoy History obtained from patient and records. Medical history significant for non-Hodgkin's lymphoma sp chemotherapy (currently in remission), inappropriate sinus tachycardia on beta-olamide, hyperlipidemia, chronic anemia (baseline hemoglobin of 11), recurrent diverticulitis, polycystic ovaries as per records Recent confinement August 2014 for sepsis secondary to diverticulitis. Beta-olamide started by cardiology during confinement for inappropriate sinus tachycardia. 2 months ago patient had achy left lower quadrant pain reminiscent of diverticulitis pain. Patient prescribed Cipro for presumptive diverticulitis. Patient preferred to avoid Flagyl recommendation. Some improvement in symptoms. 2 weeks ago patient noted achy left flank pain which felt like another flare of diverticulitis. Outpatient CT showed upper sigmoid diverticulitis. Bowel somewhat loose. Patient started on another e Cipro course along with Flagyl. Partial improvement of symptoms despite antibiotic Rx. Pain somewhat more notable on the right lower abdomen the last few days as per patient. Increased bloating, decreased appetite noted today. At the ER, patient given IV Cipro and Flagyl for possible appendicitis. MEDICAL HISTORY: As above. SURGICAL HISTORY: A-port placement, ovarian cyst removal, reconstruction of the inner nose, tonsillectomy, adenoidectomy, lymph lung biopsy, ear surgery, wisdom teeth removal. HOME MEDICATIONS: Include Tylenol, Colace, Zofran, Phenergan, Zantac. FAMILY HISTORY: Lymphoma, heart disease. PERSONAL AND SOCIAL HISTORY: Nonsmoker, no chronic intake of alcoholic beverages. 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 Allergies Allergy/AdvReac Type Severity Reaction Status Date / Time amoxicillin [From Augmentin] Allergy Intermediate tongue Verified 10/01/18 00:14 swells clavulanic acid Allergy Intermediate tongue Verified 10/01/18 00:14 [From Augmentin] swells erythromycin base AdvReac Mild NAUSEA AND Verified 10/01/18 00:14 VOMITING hydrocodone AdvReac Mild NAUSEA AND Verified 10/01/18 00:14 VOMITING Home Medications Home Medications Medication Instructions Recorded Confirmed Type atenolol 25 mg PO DAILY 05/15/18 10/01/18 History Patient History Medical History Non-Hodgkin lymphoma (Resolved) Sepsis (Resolved) Diverticulitis (Acute) Social History Preferred Language: Finnish Feels Safe at Home: Yes Smoking Status: Never smoker Review of Systems Review of Systems: As per HPI, all 10 systems reviewed, all other ROS negative Physical Exam Physical Exam: GENERAL: Comfortable, pleasant, obese, no respiratory distress SKIN: pallor , warm HEENT: Bespectacled, pale palpebral conjunctivae, no ptosis, dry buccal mucosa NECK : Supple, short neck, no tenderness CHEST : CTA, no tenderness HEART : RRR, no obvious murmurs ABDOMEN: Some distention, right lower quadrant tenderness EXTREMITIES : Minimal LE swelling, no LE tenderness, no other conspicuous deformities noted NEUROLOGIC : Coherent, no facial asymmetry, no other gross focality Results & Data Vital Signs (Past 12 Hours) Vital Signs Temp Pulse Pulse Resp BP BP Pulse Ox 10/01/18 03:52 97 H 16 138/83 97 10/01/18 01:38 94 H 18 139/75 97 09/30/18 23:47 36.7 C 102 H 22 159/105 H 99 Laboratory Results Laboratory Results WBC 7.56 K/uL (4.8-10.8) 10/01/18 00:18 RBC 4.53 M/uL (4.2-5.4) 10/01/18 00:18 Hgb 12.6 g/dL (12.0-16.0) 10/01/18 00:18 Hct 37.7 % (37-47) 10/01/18 00:18 MCV 83.2 fL (80-100) 10/01/18 00:18 MCH 27.8 pg (25-34) 10/01/18 00:18 MCHC 33.4 g/dL (32-36) 10/01/18 00:18 RDW Std Deviation 49.3 fL (36.4-46.3) H 10/01/18 00:18 RDW Coeff of [place] 16.0 % (11.5-14.5) H 10/01/18 00:18 Plt Count 179 K/uL (130-400) 10/01/18 00:18 MPV 9.0 fL (7.4-10.4) 10/01/18 00:18 Immature Gran % (Auto) 0.1 % 10/01/18 00:18 Neut % (Auto) 71.1 % 10/01/18 00:18 Lymph % (Auto) 21.3 % 10/01/18 00:18 [place] % (Auto) 6.1 % 10/01/18 00:18 Eos % (Auto) 1.3 % 10/01/18 00:18 Baso % (Auto) 0.1 % 10/01/18 00:18 Immature Gran # (Auto) 0.01 K/uL (0.00-0.02) 10/01/18 00:18 Neut # (Auto) 5.37 K/uL (1.4-6.5) 10/01/18 00:18 Lymph # (Auto) 1.61 K/uL (1.2-3.4) 10/01/18 00:18 [place] # (Auto) 0.46 K/uL (0.11-0.59) 10/01/18 00:18 Eos # (Auto) 0.10 K/uL (0-0.5) 10/01/18 00:18 Baso # (Auto) 0.01 K/uL (0-0.2) 10/01/18 00:18 Sodium 138 mmol/L (136-145) 10/01/18 00:18 Potassium 3.4 mmol/L (3.5-5.1) L 10/01/18 00:18 Chloride 103 mmol/L (98-107) 10/01/18 00:18 Carbon Dioxide 29 mmol/L (21-32) 10/01/18 00:18 Anion Gap 6.0 (3-11) 10/01/18 00:18 BUN 8 mg/dl (7-18) 10/01/18 00:18 Creatinine 0.65 mg/dl (0.6-1.2) 10/01/18 00:18 Est Cr Clr Drug Dosing 147.0 ml/min 10/01/18 00:18 Est GFR ( Amer) 123.4 10/01/18 00:18 Est GFR (Non-Af Amer) 106.5 10/01/18 00:18 BUN/Creatinine Ratio 11.7 (10-20) 10/01/18 00:18 Glucose 106 mg/dl (70-99) H 10/01/18 00:18 Calcium 8.6 mg/dl (8.5-10.1) 10/01/18 00:18 Magnesium 2.4 mg/dl (1.8-2.4) 10/01/18 00:18 Total Bilirubin 0.5 mg/dl (0.2-1) 10/01/18 00:18 AST 17 U/L (15-37) 10/01/18 00:18 ALT 33 U/L (12-78) 10/01/18 00:18 Alkaline Phosphatase 73 U/L (45-117) 10/01/18 00:18 Total Protein 7.5 gm/dl (6.4-8.2) 10/01/18 00:18 Albumin 3.8 gm/dl (3.4-5.0) 10/01/18 00:18 Globulin 3.7 gm/dl (2.5-4.0) 10/01/18 00:18 Albumin/Globulin Ratio 1.0 (0.9-2) 10/01/18 00:18 Lipase 96 U/L (73-393) 10/01/18 00:18 TSH 3.060 uIu/ml (0.300-4.500) 10/01/18 00:18 Urine Color Yellow 10/01/18 00:18 Urine Appearance Cloudy (Clear) A 10/01/18 00:18 Urine pH 5.0 (4.5-7.5) 10/01/18 00:18 Ur Specific [place] 1.033 (1.000-1.030) H 10/01/18 00:18 Urine Protein Negative (Negative) 10/01/18 00:18 Urine Glucose (UA) Negative (Negative) 10/01/18 00:18 Urine Ketones 1+ (Negative) H 10/01/18 00:18 Urine Blood Negative (Negative) 10/01/18 00:18 Urine Nitrite Negative (Negative) 10/01/18 00:18 Urine Bilirubin Negative (Negative) 10/01/18 00:18 Urine Urobilinogen Negative (Negative) 10/01/18 00:18 Ur Leukocyte Esterase Negative (Negative) 10/01/18 00:18 Urine WBC (Auto) 5-10 /hpf (0-5) H 10/01/18 00:18 Urine RBC (Auto) 0-4 /hpf (0-4) 10/01/18 00:18 U Hyaline Cast (Auto) 10-30 /lpf (0-5) H 10/01/18 00:18 U Epithel Cells (Auto) >30 /lpf (0-5) H 10/01/18 00:18 Urine Bacteria (Auto) Negative (Negative) 10/01/18 00:18 Urine Crystals Not Reportable 10/01/18 00:18 Calcium Oxalate Crystal Present (None Prsent) A 10/01/18 00:18 Urine Mucus Present (None Prsent) A 10/01/18 00:18 POC Ur Test NEG (NEG) 10/01/18 00:[address] abdomen pelvis initial read: Appendicitis. Sigmoid diverticulitis less prominent than previous exam. Hepatic steatosis. Small fat-containing umbilical hernia. (1) Appendicitis Acute appendicitis type: unspecified acute appendicitis type Appendicitis type: acute appendicitis Qualified Code(s): K35.80 - Unspecified acute appendicitis
--- NOTE | 2018-10-01 04:32 | Emergency Department Note ---
History of Present Illness General Chief complaint: Abdominal Pain Stated complaint: ABD. PAIN, HX OF DIVERTICULITIS Time Seen by Provider: 09/30/18 23:51 History of Present Illness Maximum Pain Intensity: 4 This is a 47-year-old female presenting to the emergency department for evaluation of abdominal pain worsening over the past 1 to 2 days. The patient has a history of diverticulitis diagnosed on outpatient CT with the [employer] [facility] roughly 10 days ago. The patient has been on Cipro and Flagyl and completed these medications yesterday. Despite being on the medications the p atient is complaining of some persistent left-sided lower abdominal discomfort, as well as right lower quadrant discomfort which is new. The patient does not report fever or chills, but has been taking [id number] Tylenol for her symptoms. Tylenol has been doing well to control her pain, and she rates her current discomfort a 4/10. He does not have chest pain, chest tightness, shortness of breath, upper abdominal pain, nausea, vomiting, diarrhea, or constipation. Home Medications Home Medications Medication Instructions Recorded Confirmed Type atenolol 25 mg PO DAILY 05/15/18 10/01/18 History Allergies Allergy/AdvReac Type Severity Reaction Status Date / Time amoxicillin [From Augmentin] Allergy Intermediate tongue Verified 10/01/18 00:14 swells clavulanic acid Allergy Intermediate tongue Verified 10/01/18 00:14 [From Augmentin] swells erythromycin base AdvReac Mild NAUSEA AND Verified 10/01/18 00:14 VOMITING hydrocodone AdvReac Mild NAUSEA AND Verified 10/01/18 00:14 VOMITING Past Med/Surg History Medical History Non-Hodgkin lymphoma (Resolved) Sepsis (Resolved) Diverticulitis (Acute) Social History Preferred Language: Occitan Feels Safe at Home: Yes Smoking Status: Never smoker Review of Systems A total of 10 systems reviewed and were otherwise negative Physical Exam Vital Signs Vital Signs - 24 hr 09/30/18 23:47 10/01/18 01:38 10/01/18 03:52 Temperature 36.7 C Temperature Source Oral Sepsis Recent Fever Within 48 Hours No Sepsis New/Unexplained Change in Mental Status No Sepsis Action Taken by Nursing No Action Required Pulse Rate 102 H Pulse Rate [Finger] 94 H 97 H Pulse Rhythm Regular Pulse Strength Normal Respiratory Rate 22 18 16 Respiratory Effort / Characteristics Non-Labored Spontaneous Non-Labored Spontaneous Non-Labored Spontaneous Respiratory Depth Normal Normal Normal Respiratory Pattern Regular Regular Blood Pressure 159/105 H Blood Pressure [Left Arm] 139/75 138/83 Blood Pressure Mean 123 Blood Pressure Mean [Left Arm] 96 101 Blood Pressure Position Sitting Blood Pressure Position [Left Arm] Lying Pulse Oximetry 99 97 97 Oxygen Delivery Method Room Air Room Air Room Air VITALS: Vitals are noted on the nurse's note and reviewed by myself. Vital signs stable. GENERAL: Well-developed, well-nourished, white female, who is in no acute distress and resting comfortably. Patient is cooperative with the examination. HEAD: Normocephalic atraumatic. HEART: Regular rate and rhythm without murmurs gallops or rubs. LUNGS: Clear to auscultation bilaterally without wheezes, rales or rhonchi. No retractions or accessory muscle use. ABDOMEN: Positive normal bowel sounds x 4. Soft left and right lower quadrant tenderness on palpation. No rebound or guarding. MUSCULOSKELETAL: No muscle atrophy, erythema, or edema noted. Full range of motion in all extremities. NEURO: Patient was alert and oriented to person place and time. CN II through XII grossly intact. SKIN: The skin was without rashes, erythema, edema, or bruising. Capillary refill less than 2 seconds. Course Administered Medications Ioversol (Optiray 320 100ml) 94 ml IV ONCE PRN PRN Reason: Interaction Checking Stop: 10/05/18 02:13 Last Admin: 10/01/18 02:14 Dose: 94 ml Documented by: [id number] Discontinued Medications Ciprofloxacin (Cipro) Confirm Administered Dose 400 mg IV .STK-MED ONE Stop: 10/01/18 03:58 Last Admin: 10/01/18 04:01 Dose: Not Given Documented by: [id number] Sodium Chloride (Nss 1000ml) 1,000 mls @ 999 mls/hr IV .Q1H1M MALISSA Stop: 10/01/18 01:15 Last Infusion: 10/01/18 01:27 Dose: 0 mls/hr Documented by: [id number] Admin: 10/01/18 00:20 Dose: 999 mls/hr Documented by: [id number] Acetaminophen (Ofirmev) 1,000 mg in 100 mls @ 400 mls/hr IV NOW STA Stop: 10/01/18 00:15 Last Infusion: 10/01/18 00:45 Dose: 0 mls/hr Documented by: [id number] Admin: 10/01/18 00:20 Dose: 400 mls/hr Documented by: [id number] Ciprofloxacin (Cipro) 400 mg in 200 mls @ 100 mls/hr IV PREOP MALISSA; Protocol Stop: 10/03/18 05:59 Last Admin: 10/01/18 04:01 Dose: 100 mls/hr Documented by: [id number] Metronidazole (Flagyl) 500 mg in 100 mls @ 100 mls/hr IV NOW STA Stop: 10/01/18 04:17 Last Admin: 10/01/18 03:46 Dose: 100 mls/hr Documented by: [id number] Ondansetron HCl (Zofran) 4 mg IV NOW STA Stop: 10/01/18 00:02 Last Admin: 10/01/18 00:20 Dose: 4 mg Documented by: [id number] Medical Decision Making Differential Diagnosis Differential diagnosis: Etiologies such as biliary colic, cholecystitis, hepatitis, pancreatitis, cardiac disease, pancreatitis, gastritis, peptic ulcer disease, appendicitis, cystitis, diverticulitis, mesenteric ischemia, inflammatory bowel disease, ileus, bowel obstruction, testicular/adnexal torsion, aortic pathology, shingle s, as well as others were considered Laboratory Data Result diagrams: 10/01/18 00:18 10/01/18 00:18 Lab Results 10/01/18 10/01/18 10/01/18 Range/Units 00:18 00:18 00:18 WBC 7.56 (4.8-10.8) K/uL RBC 4.53 (4.2-5.4) M/uL Hgb 12.6 (12.0-16.0) g/dL Hct 37.7 (37-47) % MCV 83.2 (80-100) fL MCH 27.8 (25-34) pg MCHC 33.4 (32-36) g/dL RDW Std Deviation 49.3 H (36.4-46.3) fL RDW Coeff of [place] 16.0 H (11.5-14.5) % Plt Count 179 (130-400) K/uL MPV 9.0 (7.4-10.4) fL Immature Gran % (Auto) 0.1 % Neut % (Auto) 71.1 % Lymph % (Auto) 21.3 % [place] % (Auto) 6.1 % Eos % (Auto) 1.3 % Baso % (Auto) 0.1 % Immature Gran # (Auto) 0.01 (0.00-0.02) K/uL Neut # (Auto) 5.37 (1.4-6.5) K/uL Lymph # (Auto) 1.61 (1.2-3.4) K/uL [place] # (Auto) 0.46 (0.11-0.59) K/uL Eos # (Auto) 0.10 (0-0.5) K/uL Baso # (Auto) 0.01 (0-0.2) K/uL Sodium 138 (136-145) mmol/L Potassium 3.4 L (3.5-5.1) mmol/L Chloride 103 (98-107) mmol/L Carbon Dioxide 29 (21-32) mmol/L Anion Gap 6.0 (3-11) BUN 8 (7-18) mg/dl Creatinine 0.65 (0.6-1.2) mg/dl Est Cr Clr Drug Dosing 147.0 ml/min Est GFR ( Amer) 123.4 Est GFR (Non-Af Amer) 106.5 BUN/Creatinine Ratio 11.7 (10-20) Glucose 106 H (70-99) mg/dl Calcium 8.6 (8.5-10.1) mg/dl Magnesium 2.4 (1.8-2.4) mg/dl Total Bilirubin 0.5 (0.2-1) mg/dl AST 17 (15-37) U/L ALT 33 (12-78) U/L Alkaline Phosphatase 73 (45-117) U/L Total Protein 7.5 (6.4-8.2) gm/dl Albumin 3.8 (3.4-5.0) gm/dl Globulin 3.7 (2.5-4.0) gm/dl Albumin/Globulin Ratio 1.0 (0.9-2) Lipase 96 (73-393) U/L TSH 3.060 (0.300-4.500) uIu/ml Urine Color Yellow Urine Appearance Cloudy A (Clear) Urine pH 5.0 (4.5-7.5) Ur Specific [place] 1.033 H (1.000-1.030) Urine Protein Negative (Negative) Urine Glucose (UA) Negative (Negative) Urine Ketones 1+ H (Negative) Urine Blood Negative (Negative) Urine Nitrite Negative (Negative) Urine Bilirubin Negative (Negative) Urine Urobilinogen Negative (Negative) Ur Leukocyte Esterase Negative (Negative) Urine WBC (Auto) 5-10 H (0-5) /hpf Urine RBC (Auto) 0-4 (0-4) /hpf U Hyaline Cast (Auto) 10-30 H (0-5) /lpf U Epithel Cells (Auto) >30 H (0-5) /lpf Urine Bacteria (Auto) Negative (Negative) Urine Crystals Not Reportable Calcium Oxalate Crystal Present A (None Prsent) Urine Mucus Present A (None Prsent) POC Ur Test (NEG) 10/01/18 Range/Units 00:28 WBC (4.8-10.8) K/uL RBC (4.2-5.4) M/uL Hgb (12.0-16.0) g/dL Hct (37-47) % MCV (80-100) fL MCH (25-34) pg MCHC (32-36) g/dL RDW Std Deviation (36.4-46.3) fL RDW Coeff of [place] (11.5-14.5) % Plt Count (130-400) K/uL MPV (7.4-10.4) fL Immature Gran % (Auto) % Neut % (Auto) % Lymph % (Auto) % [place] % (Auto) % Eos % (Auto) % Baso % (Auto) % Immature Gran # (Auto) (0.00-0.02) K/uL Neut # (Auto) (1.4-6.5) K/uL Lymph # (Auto) (1.2-3.4) K/uL [place] # (Auto) (0.11-0.59) K/uL Eos # (Auto) (0-0.5) K/uL Baso # (Auto) (0-0.2) K/uL Sodium (136-145) mmol/L Potassium (3.5-5.1) mmol/L Chloride (98-107) mmol/L Carbon Dioxide (21-32) mmol/L Anion Gap (3-11) BUN (7-18) mg/dl Creatinine (0.6-1.2) mg/dl Est Cr Clr Drug Dosing ml/min Est GFR ( Amer) Est GFR (Non-Af Amer) BUN/Creatinine Ratio (10-20) Glucose (70-99) mg/dl Calcium (8.5-10.1) mg/dl Magnesium (1.8-2.4) mg/dl Total Bilirubin (0.2-1) mg/dl AST (15-37) U/L ALT (12-78) U/L Alkaline Phosphatase (45-117) U/L Total Protein (6.4-8.2) gm/dl Albumin (3.4-5.0) gm/dl Globulin (2.5-4.0) gm/dl Albumin/Globulin Ratio (0.9-2) Lipase (73-393) U/L TSH (0.300-4.500) uIu/ml Urine Color Urine Appearance (Clear) Urine pH (4.5-7.5) Ur Specific [place] (1.000-1.030) Urine Protein (Negative) Urine Glucose (UA) (Negative) Urine Ketones (Negative) Urine Blood (Negative) Urine Nitrite (Negative) Urine Bilirubin (Negative) Urine Urobilinogen (Negative) Ur Leukocyte Esterase (Negative) Urine WBC (Auto) (0-5) /hpf Urine RBC (Auto) (0-4) /hpf U Hyaline Cast (Auto) (0-5) /lpf U Epithel Cells (Auto) (0-5) /lpf Urine Bacteria (Auto) (Negative) Urine Crystals Calcium Oxalate Crystal (None Prsent) Urine Mucus (None Prsent) POC Ur Test NEG (NEG) Imaging Data Radiologist's Impression: Preliminary Findings Only See Final Report For Complete Findings CT ABDOMEN & PELVIS With Contrast: Comparison May 15. On the axial images provided. Appendicitis. Appendix measures up to about 13 mm in caliber, does not fill with enteric contrast, has thickened harden and adjacent inflammatory changes, example image 67 through 75 series 2. There are also findings compatible with sigmoid diverticulitis with inflammatory changes seen around sigmoid diverticula. No drainable abscess. Sigmoid diverticulitis appears less prominent than the previous examination. Hypoventilatory changes/atelectasis and stable subpleural left lower lobe nodule. Unchanged appearance to the solid viscera. Hepatosplenomegaly with suspected hepatic steatosis again noted along with unchanged appearance to soft tissue in region of pancreatic head as well as unchanged appearance to uterus which appears prominent with prominence of the endometrial stripe, as on prior. Small fat-containing umbilical hernia and other unchanged findings. Radiologist: Dario Alvarez M.D. [facility] Narrative Physical exam and history were performed. Nursing notes, EMR, and Medication List were personally reviewed. Patient appears to have abdominal discomfort in both the left and right sides worsening over the past day. She was recently treated for diverticulitis. IV access was established and labs were obtained. The patient was given IV saline, IV Tylenol, and IV Zofran for symptoms. Out of concern for possible complicated diverticulitis or other intra-abdominal process CT scan with IV and oral contrast was performed. Patient's blood work is as above and was reviewed. She does not have a significantly elevated white blood cell count, gross anemia, bandemia, or significant electrolyte imbalance. Lipase and transaminases are not diagnostic. Urine does not show gross infection. She is not . CT scan was reviewed by myself and radiology and is consistent with acute appendicitis. The patient may also have a sigmoid diverticulitis. The case was discussed with the on-call hospitalist, Dr. Ga, who agreed to evaluate the patient here in the ER. We did start her on IV Cipro and Flagyl. Please see Dr. Ga's dictation for further patient course, plan, and dispositio n. The chart was completed utilizing [employer] Voice Recognition Software. Grammatical errors, random word insertions, pronoun errors, and incomplete sentences are an occasional consequence of this system due to software limitations, ambient noise, and hardware issues. Any formal questions or concerns about the content, text, or information contained within the body of this dictation should be directly addressed to the provider for clarification. . Impression & Plan Appendicitis Discharge Plan Visit Data Chief Complaint: Abdominal Pain Stated Complaint: ABD. PAIN, HX OF DIVERTICULITIS ED Provider: Rich Doe ED Midlevel Provider: Mor Pichardo Discharge Problem: Appendicitis Forms Stand Alone Forms: Call Back Authorization, [facility] [employer] Prescriptions Prescriptions: No Action atenolol 25 mg tablet 25 mg PO DAILY RF: 0 Referrals Referrals: Venita Godoy DO [Primary Care Provider] - Discharge Problem: Appendicitis Qualifiers: Appendicitis type: acute appendicitis Acute appendicitis type: unspecified acute appendicitis type Qualified Code(s): K35.80 - Unspecified acute appendicitis
[2018-10-01] MEDS ORDERED: BUPIVACAINE 0.5 % 5 MG/1 ML MPF 30ML VIAL ONE (04:37)
[2018-10-01] MEDS ORDERED: PROPOFOL IV EMULSION 10 MG/ML 20 ML VIAL IV ONE (04:50)
[2018-10-01] MEDS ORDERED: fentaNYL citrate 100 MCG/2 ML VIAL ONE (04:54)
[2018-10-01] MEDS ORDERED: SCOPOLAMINE 1.5 MG TDSY ONE (05:02)
--- NOTE | 2018-10-01 05:06 | Anesthesiology Consultation ---
Date of Service October 01, 2018 Assessment & Plan (1) Encounter for pre-operative examination: Chart Review Chart Review: Acceptable Risk for Surgery and Patient NOT seen in Pre Admission Testing Consults Requested none History Surgery Operation Date: 10/01/18 04:30 Proposed Procedures p Laparoscopic Appendectomy - Alfonso Ga MD, FACS Height/Weight Height: 5 ft 5 in Weight: 129.7 kg Allergies Allergy/AdvReac Type Severity Reaction Status Date / Time amoxicillin [From Augmentin] Allergy Intermediate tongue Verified 10/01/18 00:14 swells clavulanic acid Allergy Intermediate tongue Verified 10/01/18 00:14 [From Augmentin] swells erythromycin base AdvReac Mild NAUSEA AND Verified 10/01/18 00:14 VOMITING hydrocodone AdvReac Mild NAUSEA AND Verified 10/01/18 00:14 VOMITING Medications Home Medications Medication Instructions Recorded Confirmed Last Taken atenolol 25 mg PO DAILY 05/15/18 10/01/18 Unknown Active Medications Generic Name Dose Route Start Last Admin Trade Name Freq PRN Reason Stop Dose Admin Ioversol 94 ml 10/01/18 02:14 10/01/18 02:14 Optiray 320 100ml IV 10/05/18 02:13 94 ml ONCE PRN Administration Interaction Checking NPO Date Last Intake of Fluids: 09/30/18 Time Last Intake of Fluids: 20:30 Date Last Intake of Solids: 09/30/18 Time Last Intake of Solids: 18:30 Past Medical History Medical History Non-Hodgkin lymphoma (Resolved) Sepsis (Resolved) Diverticulitis (Acute) Social History Smoking Status: Never smoker Physical Exam Vital Signs Last Vital Signs Temp 36.7 C 09/30/18 23:47 Pulse 97 H 10/01/18 03:52 Resp 16 10/01/18 03:52 BP 138/83 10/01/18 03:52 Pulse Ox 97 10/01/18 03:52 Testing Laboratory Results 10/01/18 00:18 10/01/18 00:18 Urine Color Yellow 10/01/18 00:18 Urine Appearance Cloudy (Clear) A 10/01/18 00:18 Urine pH 5.0 (4.5-7.5) 10/01/18 00:18 Ur Specific [place] 1.033 (1.000-1.030) H 10/01/18 00:18 Urine Protein Negative (Negative) 10/01/18 00:18 Urine Glucose (UA) Negative (Negative) 10/01/18 00:18 Urine Ketones 1+ (Negative) H 10/01/18 00:18 Urine Nitrite Negative (Negative) 10/01/18 00:18 Ur Leukocyte Esterase Negative (Negative) 10/01/18 00:18 Urine WBC (Auto) 5-10 /hpf (0-5) H 10/01/18 00:18 Urine RBC (Auto) 0-4 /hpf (0-4) 10/01/18 00:18 U Hyaline Cast (Auto) 10-30 /lpf (0-5) H 10/01/18 00:18 U Epithel Cells (Auto) >30 /lpf (0-5) H 10/01/18 00:18 Urine Bacteria (Auto) Negative (Negative) 10/01/18 00:18 10/01/18 00:28 POC Ur Test NEG
[2018-10-01] MEDS ORDERED: ePHEDrine sulfate 50 MG/ML AMP IV PRN (05:09)
[2018-10-01] MEDS ORDERED: ATROPINE SULFATE 0.1 MG/ML 10ML SYR IV PRN (05:09)
[2018-10-01] MEDS ORDERED: PROMETHAZINE HCL 12.5 MG in SODIUM CHLORIDE 0.9% 50 ML IV PRN ×2 (05:09→08:13)
[2018-10-01] MEDS ORDERED: HYDROmorphone INJ 1 MG/ML SYRINGE IV PRN ×2 (05:09→08:13)
[2018-10-01] MEDS ORDERED: CIPROFLOXACIN 400 MG/200 ML BAG IV SCH (06:00)
[2018-10-01] MEDS ORDERED: ONDANSETRON INJ 2 MG/ML 2 ML VIAL ONE ×2 (06:09→08:21)
[2018-10-01] MEDS ORDERED: ROCURONIUM BROMIDE 10 MG/ML 5 ML VIAL ONE (06:10)
[2018-10-01] MEDS ORDERED: DEXAMETHASONE SOD INJ 4 MG/ML VIAL ONE (06:10)
--- NOTE | 2018-10-01 06:39 | Operative Report ---
Post Operative Report Pre & Post Diagnosis Operation Date: 10/01/18 04:30 Pre-Op Diagnosis: Appendicitis Post-Op Diagnosis: Appendicitis Procedure Operation Date: 10/01/18 04:30 Actual Procedures p Laparoscopic Appendectomy(Not Applicable) - Alfonso Ga MD, FACS Surgeon Alfonso Ga MD, FACS Program Director [employer] nurses Estimated Blood Loss 10 Findings Consistent with Post-Op Diagnosis Specimens appendix Description of Procedure see dictation I attest to the content of the Intraoperative Record and any orders documented therein. Any exceptions are noted below.
--- NOTE | 2018-10-01 07:01 | CT Scan Report ---
ABDOMEN AND PELVIS CT WITH IV AND ORAL CONTRAST CT DOSE: 1729.42 mGy.cm HISTORY: Acute generalized abdominal pain abdominal pain TECHNIQUE: Multiaxial CT images of the abdomen and pelvis were performed following the use of intrave nous and oral contrast. A dose lowering technique was utilized adhering to the principles of ALARA. COMPARISON STUDY: CT abdomen pelvis 05/15/2018 FINDINGS: Clear lung bases. No pneumatosis or pneumoperitoneum. The imaged inferior cardiac chambers appear unr emarkable. Hepatosplenomegaly with suggestion of hepatic steatosis. Liver otherwise appears unremarka ble. Unchanged 1.5 cm soft tissue density structure about the anterior aspect of the pancreatic head possibly reflective of exophytic parenchyma. Gallbladder and adrenal glands appear normal. Kidneys, u reters and urinary bladder are within normal limits. Prominence of the endometrium. Uterus also appea rs prominent in size. No adnexal mass lesions. Aorta and IVC are within normal limits. No adenopathy by CT size criteria. No bowel obstruction. Thickened appendix measures up to 1.2 cm transversely and demonstrates thickene d harden. No enteric contrast extends into the appendix. Periappendiceal inflammatory stranding is not ed without evidence of perforation or drainable fluid collection. Colonic diverticulosis. Inflammator y stranding about the mid sigmoid colon with mild wall thickening. Soft tissues are unremarkable. Bon es appear to be intact. 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 IMPRESSION: 1. Findings compatible with acute uncomplicated appendicitis. 2. Mild acute sigmoid diverticulitis. No evidence of perforation or drainable fluid collection. 3. No bowel obstruction. 4. Hepatosplenomegaly. 5. Additional findings as above. Electronically signed by: Matt Bruce M.D. 10/01/2018 6:59 AM
[2018-10-01] MEDS ORDERED: MEPERIDINE HCL 25 MG/ML CARP ONE (07:27)
[2018-10-01] MEDS ORDERED: MEPERIDINE HCL 25 MG/ML CARP IV PRN (07:28)
--- NOTE | 2018-10-01 07:31 | Operative Report ---
DATE OF OPERATION: 10/01/2018 NAME OF OPERATION: Laparoscopic appendectomy. PREOPERATIVE DIAGNOSIS: Acute appendicitis. POSTOPERATIVE DIAGNOSIS: Acute appendicitis. STAFF SURGEON: Alfonso Ga MD ANESTHESIA: General. DESCRIPTION OF PROCEDURE: The patient was brought in the operating room and placed on the operating table in supine position. Intubation was extremely difficult because of the patient's morbid obesity and anatomy. After she was intubated, she was prepped and draped in usual fashion. Pneumatic stockings were placed. Orogastric tube placed. Initially, the skin and subcutaneous tissue above the umbilicus were anesthetized using 0.5% plain Marcaine. At this point, a Veress needle placed and pneumoperitoneum produced. A 12 mm port was placed this level, and then under visualization, two 5 mm ports placed, 1 suprapubic and 1 left lower quadrant. The appendix was thickened and inflamed, adherent to the retroperitoneum, had an exudate, but no abscess. It was very dilated. There was some difficulty, the base of the appendix was exposed and then transected using an Endo-ZEINAB stapler and the mesoappendix transected in 2 fires of the Endo-ZEINAB. Appendix was placed in an Endobag. After appropriate hemostasis and irrigation, the Endobag was removed from the umbilical site. I did have to enlarge the site because of the size of the appendix. The fascia at the umbilicus then closed after all ports were removed using 0 PDS suture. Skin reapproximated using subcuticular 4-0 Monocryl and Dermabond. The patient was transferred to the recovery room in stable condition. I attest to the content of the Intraoperative Record and any orders documented therein. Any exception s are noted below.
[2018-10-01] MEDS ORDERED: ACETAMINOPHEN 1000 MG/100 ML IV IV ONE (07:34)
--- NOTE | 2018-10-01 07:48 | Anesthesiology Progress Note ---
Date of Service October 01, 2018 Anesthesia Post Procedure Vital Signs Vital Signs: Temp Pulse Pulse Pulse Resp BP BP 10/01/18 07:45 37.1 C 98 H 15 135/77 10/01/18 07:35 93 H 16 145/74 H 10/01/18 07:25 100 H 18 128/77 10/01/18 07:15 99 H 16 123/79 10/01/18 07:09 36.3 C L 99 H 16 120/85 10/01/18 03:52 97 H 16 138/83 10/01/18 01:38 94 H 18 139/75 09/30/18 23:47 36.7 C 102 H 22 159/105 H Pulse Ox 10/01/18 07:45 95 10/01/18 07:35 95 10/01/18 07:25 100 10/01/18 07:15 100 10/01/18 07:09 99 10/01/18 03:52 97 10/01/18 01:38 97 09/30/18 23:47 99 Pain Intensity Abdomen: Pain Intensity: 3 Transfer of Care Handoff Completed per policy Notes Mental Status: alert / awake / arousable and participated in evaluation Patient Amnestic to Procedure: Yes Nausea / Vomiting: adequately controlled Pain: adequately controlled Airway Patency, RR, SpO2: stable & adequate BP & HR: stable & adequate Hydration State: stable & adequate Anesthetic Complications: no major complications apparent and Pt Satisfied with anesthetic care
--- NOTE | 2018-10-01 08:02 | Progress Note ---
Date of Service October 01, 2018 Assessment & Plan (1) Diverticulitis: pt with acute appendicitis and recent/ ongoing diverticulitis will keep on IV atbx several days kiersten to treat colonic dz cipro/ flagyl for now apparently had tongue swelling with Augmentin clear liquids only for now Subjective see a/p Results & Data Vital Signs (Past 12 Hours) Vital Signs Temp Pulse Pulse Pulse Resp BP BP 10/01/18 07:45 37.1 C 98 H 15 135/77 10/01/18 07:35 93 H 16 145/74 H 10/01/18 07:25 100 H 18 128/77 10/01/18 07:15 99 H 16 123/79 10/01/18 07:09 36.3 C L 99 H 16 120/85 10/01/18 03:52 97 H 16 138/83 10/01/18 01:38 94 H 18 139/75 09/30/18 23:47 36.7 C 102 H 22 159/105 H Pulse Ox 10/01/18 07:45 95 10/01/18 07:35 95 10/01/18 07:25 100 10/01/18 07:15 100 10/01/18 07:09 99 10/01/18 03:52 97 10/01/18 01:38 97 09/30/18 23:47 99
[2018-10-01] MEDS ORDERED: IBUPROFEN 600 MG TAB PO PRN (08:13)
[2018-10-01] MEDS ORDERED: PROMETHAZINE HCL 25 MG in SODIUM CHLORIDE 0.9% 50 ML IV PRN (08:13)
[2018-10-01] MEDS ORDERED: HYDROCODONE/ACETAMOPHEN 5/325MG TAB PO PRN ×2 (08:13)
[2018-10-01] MEDS ORDERED: HYDROmorphone INJ 0.5 MG/0.5 ML SYR IV PRN (08:13)
[2018-10-01] MEDS: ONDANSETRON INJ 2 MG/ML 2 ML VIAL IV PRN (08:22)
[2018-10-01] MEDS: SODIUM CHLORIDE 0.9% 1000ML 1,000 ML IV SCH ×2 (10:07→23:56)
[2018-10-01] MEDS: ACETAMINOPHEN 325 MG TAB PO PRN (11:18)
[2018-10-01] MEDS: metroNIDAZOLE 500 MG/100 ML BAG IV SCH ×2 (11:18→21:18)
[2018-10-01] MEDS: ATENOLOL 25 MG TABLET PO SCH (11:18)
[2018-10-01] MEDS: CIPROFLOXACIN 400 MG/200 ML BAG IV SCH (17:09)
--- NOTE | 2018-10-01 18:03 | Hospitalist Progress Note ---
Date of Service October 01, 2018 Assessment & Plan (1) Appendicitis: Acute appendicitis Status post laparoscopic appendectomy Postop day #0 Patient is stable overall postoperatively Recurrent diverticulitis Third episode of diverticulitis per patient Started on ciprofloxacin plus metronidazole IV Will need at least 10 to 14 days of antibiotic treatment will start probiotics Hypokalemia secondary to loose stools, poor p.o. intake Replaced BMP tomorrow NHL sp chemotherapy (currently in remission) inappropriate sinus tachycardia-continue usual atenolol chronic anemia, hemoglobin 12.6, better than baseline Obstructive sleep apnea-continue CPAP DVT prophylaxis SCDs for now (Recommend pharmacologic anticoagulation with Lovenox 40 mg subcutaneous daily once bleeding risk is deemed to be minimal and negligible.) Thank you for this consultation. We will follow the patient with you during their hospital stay. You can reach a member of the [facility] Hospitalist Team 18/10 via pager @ [phone]. Subjective Follow-up for acute diverticulitis, appendicitis Seen sitting up in bed, having dinner Comfortable, not in distress Has mild right lower quadrant discomfort Denies nausea vomiting, tolerating clear liquid diet well Denies chest pain, shortness of breath, palpitations, dizziness, fevers or chills Positive flatus Review of Systems Review of Systems: All systems reviewed & are unremarkable except as noted in HPI & below Physical Exam Physical Exam: General- oriented x 3, not in distress, speaks in sentences with no effort or accessory muscle use Head- atraumatic Eyes- PERRL, EOMI, anicteric ENT- oropharynx clear Neck- supple, no JVD, no adenopathy, no thyromegaly; carotids +2/2, no bruits appreciated Lungs- clear to auscultation bilaterally, no rales/wheezes Heart- normal rate, regular rhythm; no murmur, no gallop, no rub appreciated Abdomen- normal bowel sounds, nondistended, soft, nontender, no masses or hepatosplenomegaly Laparoscopic sites: No bleeding or discharge, no signs of infection Extremities- no pretibial edema, no calf tenderness; peripheral pulses intact Neuro- alert, oriented x 3; CN 2-12 grossly intact; motor 5/5 bilaterally;sensation 100% on all extremities; no other gross focal neurologic deficits Skin- warm & dry Results & Data Vital Signs (Past 12 Hours) Vital Signs Temp Pulse Pulse Resp BP Pulse Ox 10/01/18 15:16 37.0 C 68 20 113/70 94 10/01/18 11:00 36.8 C 97 H 16 127/83 97 10/01/18 10:04 36.8 C 98 H 18 143/80 H 93 10/01/18 09:00 36.8 C 96 H 18 110/67 97 10/01/18 08:30 92 H 20 137/81 96 10/01/18 08:00 36.6 C 94 H 14 135/76 94 10/01/18 07:45 37.1 C 98 H 15 135/77 95 10/01/18 07:35 93 H 16 145/74 H 95 10/01/18 07:25 100 H 18 128/77 100 10/01/18 07:15 99 H 16 123/79 100 10/01/18 07:09 36.3 C L 99 H 16 120/85 99 Laboratory Results All noted and reviewed (1) Appendicitis Acute appendicitis type: unspecified acute appendicitis type Appendicitis type: acute appendicitis Qualified Code(s): K35.80 - Unspecified acute appendicitis
[2018-10-02] MEDS: metroNIDAZOLE 500 MG/100 ML BAG IV SCH ×3 (03:47→20:15)
[2018-10-02] MEDS: CIPROFLOXACIN 400 MG/200 ML BAG IV SCH ×2 (03:47→16:43)
--- NOTE | 2018-10-02 05:57 | Progress Note ---
Date of Service October 02, 2018 Assessment & Plan (1) Appendicitis: appendicitis during treatment of diverticulitis pt needs addnl IV atbx for treatment of diverticulitis (2 weeks) likely cipro/flagyl doing well- clear liquids only, stop IV fluids, add probiotic at pts request plan d/c Wed ? will ask med team to help arrange f/u with Colorectal Surg (at [facility]) with pts morbid obesity - surgery will be challenging for diverticular dis Acute appendicitis type: unspecified acute appendicitis type Appendicitis type: acute appendicitis Qualified Code(s): K35.80 - Unspecified acute appendicitis Subjective see a/p Results & Data Vital Signs (Past 12 Hours) Vital Signs Temp Pulse Resp BP Pulse Ox 10/02/18 04:00 37 C 91 H 16 118/77 97 10/01/18 23:20 37.2 C 85 14 117/74 93
--- NOTE | 2018-10-02 07:37 | Anesthesiology Progress Note ---
Date of Service October 02, 2018 Anesthesia Post Procedure Vital Signs Vital Signs: Temp Pulse Pulse Pulse Resp BP BP 10/02/18 04:00 37 C 91 H 16 118/77 10/01/18 23:20 37.2 C 85 14 117/74 10/01/18 15:16 37.0 C 68 20 113/70 10/01/18 11:00 36.8 C 97 H 16 127/83 10/01/18 10:04 36.8 C 98 H 18 143/80 H 10/01/18 09:00 36.8 C 96 H 18 110/67 10/01/18 08:30 92 H 20 137/81 10/01/18 08:00 36.6 C 94 H 14 135/76 10/01/18 07:45 37.1 C 98 H 15 135/77 Pulse Ox 10/02/18 04:00 97 10/01/18 23:20 93 10/01/18 15:16 94 10/01/18 11:00 97 10/01/18 10:04 93 10/01/18 09:00 97 10/01/18 08:30 96 10/01/18 08:00 94 10/01/18 07:45 95 Pain Intensity Abdomen: Pain Intensity: 2 Notes Mental Status: alert / awake / arousable Patient Amnestic to Procedure: Yes Nausea / Vomiting: adequately controlled Pain: adequately controlled Airway Patency, RR, SpO2: stable & adequate BP & HR: stable & adequate Hydration State: stable & adequate Anesthetic Complications: no major complications apparent and Pt Satisfied with anesthetic care
[2018-10-02] MEDS: ACETAMINOPHEN 325 MG TAB PO PRN (07:55)
[2018-10-02] MEDS ORDERED: LACTOBACILLUS ACIDOPHILUS (FLORANEX) TAB PO SCH (08:00)
[2018-10-02] MEDS: ATENOLOL 25 MG TABLET PO SCH (09:12)
[2018-10-02] MEDS: NYSTATIN SUSP 500,000 U/5 ML UDC PO SCH ×4 (09:16→20:15)
--- NOTE | 2018-10-02 09:55 | Hospitalist Progress Note ---
Date of Service October 02, 2018 Assessment & Plan (1) Appendicitis: Acute appendicitis Status post laparoscopic appendectomy Postop day #1 Patient tolerated procedure well, incisions CDI Tolerating clear liquid diet, advance per surgery continue incentive spirometry and encourage ambulation for dvt ppx Recurrent diverticulitis Third episode of diverticulitis in past year Started on ciprofloxacin plus metronidazole IV Will require at least 10 to 14 days of antibiotic treatment probiotics initiated PCP Follow up 10/10/@ 10:30 In order to schedule with colorectal will need to be set up through [facility] - in process of arranging Hypokalemia secondary to loose stools, poor p.o. intake Replaced Check BMP in a.m. NHL sp chemotherapy (currently in remission) inappropriate sinus tachycardia continue usual atenolol Follows Dr. Cheng chronic anemia hemoglobin 12.6, check bmp in a.m. Obstructive sleep apnea-continue CPAP DVT prophylaxis SCDs for now, encourage ambulation (Recommend pharmacologic anticoagulation with Lovenox 40 mg subcutaneous daily once bleeding risk is deemed to be minimal and negligible.) Thank you for this consultation. We will follow the patient with you during their hospital stay. You can reach a member of the [facility] Hospitalist Team 18/10 via pager @ [phone]. Supervising Physician Co-Signing Physician Notes Attending Addendum: delayed entry date of service noted above care coordinated with DEVIN Welch please refer to her notes for full details, I agree with her notes patient seen and examined, records reviewed by myself as well on exam, patient seen resting in bed, comfortable not in distress mild abdominal discomfort, no nausea/vomiting no other symptoms VS noted and reviewed oriented x3, not in distress, speaks in sentences with no effort nor accessory muscle use normal rate, regular rhythm, no murmurs clear breath sounds bilaterally non distended, soft, nontender, wounds healing well no bipedal edema, erythema, warmth no neuro deficits WBC 4.8 Hg 11.3 ASSESSMENT AND PLAN ACUTE APPENDICITIS S/P APPENDECTOMY stable overall ACUTE DIVERTICULITIS, RECURRENT on Cipro + Flagyl recommend at least 2 weeks antibiotic course referral to GI, Colorectal Surgery other diagnoses and plan of care as per DEVIN Welch notes Jamie Cueto MD Subjective Patient was seen and examined in room 358 bed 1. Patient is status post appendectomy POD #[address] Ga. Overall patient feels well. She had loose BM this morning. Passing flatus. She is tolerating clear liquid diet. She denies fever, chills, sweats, lightheadedness, dizziness, chest pain, shortness breath, nausea, vomiting, abdominal pain. Patient is ambulating about the unit approximately 5-6 times. Pt has no acute concerns. Review of Systems Review of Systems: As noted per HPI, 10 systems reviewed and negative unless noted above. Physical Exam Physical Exam: Gen: WD/WN,F, sitting up in bedside chair, NAD, A&O x3 HEENT: Normocephalic, atraumatic, conjunctivae moist, sclerae anicteric, mucous membranes moist. Lung: Clear to Auscultation bilaterally, no wheezes/rales/rhonchi Heart: Regular rate, regular rhythm, no murmurs, rubs, or gallops Abdomen: obese abdomen, + incision x 3 clean, dry intact, Soft, NT,+BS x 4 Extremities: No edema Skin: Warm, no rash, negative turgor. Results & Data Vital Signs (Past 12 Hours) Vital Signs Temp Pulse Resp BP BP Pulse Ox 10/02/18 09:11 81 114/58 L 10/02/18 07:44 36.8 C 72 18 105/72 94 10/02/18 04:00 37 C 91 H 16 118/77 97 10/01/18 23:20 37.2 C 85 14 117/74 93 Medications Administered Acetaminophen (Tylenol) 650 mg PO Q4H PRN PRN Reason: Pain Stop: 10/31/18 08:12 Last Admin: 10/02/18 07:55 Dose: 650 mg Documented by: [id number] Admin: 10/01/18 11:18 Dose: 650 mg Documented by: [id number] Atenolol (Tenormin) 25 mg PO DAILY MALISSA Stop: 10/31/18 08:59 Last Admin: 10/02/18 09:12 Dose: 25 mg Documented by: [id number] Admin: 10/01/18 11:18 Dose: 25 mg Documented by: [id number] Ciprofloxacin (Cipro) 400 mg in 200 mls @ 100 mls/hr IV Q12H MALISSA Stop: 10/11/18 08:12 Last Infusion: 10/02/18 05:47 Dose: 0 mls/hr Documented by: [id number] Admin: 10/02/18 03:47 Dose: 100 mls/hr Documented by: [id number] Infusion: 10/01/18 19:15 Dose: 0 mls/hr Documented by: [id number] Admin: 10/01/18 17:09 Dose: 100 mls/hr Documented by: [id number] Metronidazole (Flagyl) 500 mg in 100 mls @ 100 mls/hr IV Q8H [facility] Stop: 10/11/18 08:12 Last Infusion: 10/02/18 04:47 Dose: 0 mls/hr Documented by: [id number] Admin: 10/02/18 03:47 Dose: 100 mls/hr Documented by: [id number] Infusion: 10/01/18 22:50 Dose: 0 mls/hr Documented by: [id number] Admin: 10/01/18 21:18 Dose: 100 mls/hr Documented by: [id number] Infusion: 10/01/18 12:49 Dose: 0 mls/hr Documented by: [id number] Admin: 10/01/18 11:18 Dose: 100 mls/hr Documented by: [id number] Ibuprofen (Motrin) 600 mg PO Q6H PRN PRN Reason: Pain Stop: 10/31/18 08:12 Last Admin: 10/01/18 14:27 Dose: 600 mg Documented by: [id number] Nystatin (Mycostatin) 5 ml PO QID [facility] Stop: 10/12/18 08:59 Last Admin: 10/02/18 09:16 Dose: 5 ml Documented by: [id number] Ondansetron HCl (Zofran) 4 mg IV [id number] PRN PRN Reason: Nausea Stop: 10/31/18 08:12 Last Admin: 10/01/18 08:22 Dose: 4 mg Documented by: [id number] Discontinued Medications Acetaminophen (Ofirmev) Confirm Administered Dose 1,000 mg IV .STK-MED ONE Stop: 10/01/18 07:35 Last Admin: 10/01/18 08:19 Dose: Not Given Documented by: [id number] Bupivacaine HCl (Marcaine 0.5% Mpf) Confirm Administered Dose 30 ml .ROUTE .STK- MED ONE Stop: 10/01/18 04:38 Last Admin: 10/01/18 06:28 Dose: 9 ml Documented by: [id number] Ciprofloxacin (Cipro) Confirm Administered Dose 400 mg IV .STK-MED ONE Stop: 10/01/18 03:58 Last Admin: 10/01/18 04:01 Dose: Not Given Documented by: [id number] Sodium Chloride (Nss 1000ml) 1,000 mls @ 999 mls/hr IV .Q1H1M MALISSA Stop: 10/01/18 01:15 Last Infusion: 10/01/18 01:27 Dose: 0 mls/hr Documented by: [id number] Admin: 10/01/18 00:20 Dose: 999 mls/hr Documented by: [id number] Acetaminophen (Ofirmev) 1,000 mg in 100 mls @ 400 mls/hr IV NOW STA Stop: 10/01/18 00:15 Last Infusion: 10/01/18 00:45 Dose: 0 mls/hr Documented by: [id number] Admin: 10/01/18 00:20 Dose: 400 mls/hr Documented by: [id number] Ciprofloxacin (Cipro) 400 mg in 200 mls @ 100 mls/hr IV PREOP MALISSA; Protocol Stop: 10/03/18 05:59 Last Infusion: 10/01/18 10:25 Dose: 0 mls/hr Documented by: [id number] Admin: 10/01/18 04:01 Dose: 100 mls/hr Documented by: [id number] Metronidazole (Flagyl) 500 mg in 100 mls @ 100 mls/hr IV NOW STA Stop: 10/01/18 04:17 Last Infusion: 10/01/18 10:24 Dose: 0 mls/hr Documented by: [id number] Admin: 10/01/18 03:46 Dose: 100 mls/hr Documented by: [id number] Potassium Chloride (K Ulises / Wtr) 10 meq in 100 mls @ 100 mls/hr IV ONE ONE Stop: 10/01/18 04:56 Last Infusion: 10/01/18 13:48 Dose: 0 mls/hr Documented by: [id number] Infusion: 10/01/18 11:30 Dose: 50 mls/hr Documented by: [id number] Admin: 10/01/18 11:17 Dose: 100 mls/hr Documented by: [id number] Lactated Ringer's (Lr) 1,000 mls @ 100 mls/hr IV .Q10H MALISSA Stop: 10/31/18 04:14 Last Admin: 10/01/18 18:16 Dose: Not Given Documented by: [id number] Promethazine HCl 12.5 mg/ (Sodium Chloride) 50.5 mls @ 204 mls/hr IV ONCE PRN PRN Reason: PACU Use Only-Nausea/Vomiting Stop: 10/01/18 10:10 Last Infusion: 10/01/18 10:25 Dose: 0 mls/hr Documented by: [id number] Admin: 10/01/18 07:21 Dose: 204 mls/hr Documented by: [id number] Acetaminophen (Ofirmev) 1,000 mg in 100 mls @ 400 mls/hr IV NOW STA Stop: 10/01/18 06:55 Last Infusion: 10/01/18 10:13 Dose: 0 mls/hr Documented by: [id number] Admin: 10/01/18 07:35 Dose: 400 mls/hr Documented by: [id number] Sodium Chloride (Nss 1000ml) 1,000 mls @ 80 mls/hr IV .[id number] MALISSA Stop: 10/31/18 08:12 Last Infusion: 10/02/18 06:30 Dose: 0 mls/hr Documented by: [id number] Admin: 10/01/18 23:56 Dose: 80 mls/hr Documented by: [id number] Infusion: 10/01/18 23:56 Dose: 80 mls/hr Documented by: [id number] Infusion: 10/01/18 19:15 Dose: 80 mls/hr Documented by: [id number] Infusion: 10/01/18 17:09 Dose: 0 mls/hr Documented by: [id number] Infusion: 10/01/18 12:49 Dose: 80 mls/hr Documented by: [id number] Infusion: 10/01/18 11:18 Dose: 0 mls/hr Documented by: [id number] Admin: 10/01/18 10:07 Dose: 80 mls/hr Documented by: [id number] Ioversol (Optiray 320 100ml) 94 ml IV ONCE PRN PRN Reason: Interaction Checking Stop: 10/05/18 02:13 Last Admin: 10/01/18 02:14 Dose: 94 ml Documented by: [id number] Lactobacillus Acidophilus (Floranex) 4 tab PO TIDM MALISSA Stop: 10/02/18 08:01 Last Admin: 10/02/18 07:53 Dose: 4 tab Documented by: [id number] Meperidine HCl (Demerol) Confirm Administered Dose 25 mg .ROUTE .STK-MED ONE Stop: 10/01/18 07:28 Last Admin: 10/01/18 08:19 Dose: Not Given Documented by: [id number] Meperidine HCl (Demerol) 12.5 mg IV Q5M PRN PRN Reason: PACU Use Only-Pain/Shivering Stop: 10/01/18 12:28 Last Admin: 10/01/18 07:30 Dose: 12.5 mg Documented by: [id number] Ondansetron HCl (Zofran) 4 mg IV NOW STA Stop: 10/01/18 00:02 Last Admin: 10/01/18 00:20 Dose: 4 mg Documented by: [id number] Ondansetron HCl (Zofran) Confirm Administered Dose 4 mg .ROUTE .STK-MED ONE Stop: 10/01/18 08:22 Last Admin: 10/01/18 10:13 Dose: Not Given Documented by: [id number] (1) Appendicitis Acute appendicitis type: unspecified acute appendicitis type Appendicitis type: acute appendicitis Qualified Code(s): K35.80 - Unspecified acute appendicitis
[2018-10-02] MEDS: LACTOBACILLUS ACIDOPHILUS (FLORANEX) TAB PO SCH ×3 (12:28→20:15)
[2018-10-02 19:41] LABS: Basophils # (auto) 0.01 K/uL (0-0.2); Basophils % (auto) 0.2 %; Eosinophils # (auto) 0.09 K/uL (0-0.5); Eosinophils % (auto) 1.9 %; Hematocrit (blood only) 35.1 % (37-47); Hemoglobin 11.3 g/dL (12.0-16.0); Immature Granulocytes # (auto) 0.01 K/uL (0.00-0.02); Immature Granulocytes % (auto) 0.2 %; Lymphocytes % (auto) 31.1 %; Mean Corpuscular Hgb Conc 32.2 g/dL (32-36); Mean Corpuscular Volume 86.5 fL (80-100); Monocytes # (auto) 0.21 K/uL (0.11-0.59); Monocytes % (auto) 4.4 %; Neutrophils % (auto) 62.2 %; Platelet Count 163 K/uL (130-400); RDW Coefficient of Variation 15.7 % (11.5-14.5); RDW Standard Deviation 49.9 fL (36.4-46.3); Red Blood Count 4.06 M/uL (4.2-5.4); White Blood Count 4.82 K/uL (4.8-10.8)
[2018-10-02 20:07] LABS: BUN Creatinine Ratio 8.8 (10-20); Calcium 8.6 mg/dl (8.5-10.1); Creatinine Clr Calc Pharmacy 138.4 ml/min; Est GFR (Non-African American) 104.4; Potassium 3.1 mmol/L (3.5-5.1)
[2018-10-02] MEDS ORDERED: POTASSIUM CHLORIDE 10 MEQ TABCR PO STA (20:21)
[2018-10-03] MEDS: metroNIDAZOLE 500 MG/100 ML BAG IV SCH ×2 (03:44→21:24)
[2018-10-03] MEDS: CIPROFLOXACIN 400 MG/200 ML BAG IV SCH ×2 (03:44→16:09)
[2018-10-03 06:13] LABS: Hematocrit (blood only) 36.2 % (37-47); Hemoglobin 11.9 g/dL (12.0-16.0); Mean Corpuscular Hgb Conc 32.9 g/dL (32-36); Mean Corpuscular Volume 85.4 fL (80-100); Mean Platelet Volume 8.8 fL (7.4-10.4); Platelet Count 196 K/uL (130-400); RDW Coefficient of Variation 15.7 % (11.5-14.5); RDW Standard Deviation 49.4 fL (36.4-46.3); Red Blood Count 4.24 M/uL (4.2-5.4)
--- NOTE | 2018-10-03 06:24 | Progress Note ---
Date of Service October 03, 2018 Assessment & Plan (1) Diverticulitis: progressing- adv to full liquids try po Flagyl, if doesn't tolerate will ask ID for suggestions cont IV Cipro possible d/c tomorrow Subjective see a/p Results & Data Vital Signs (Past 12 Hours) Vital Signs Temp Pulse Resp BP Pulse Ox 10/02/18 23:25 36.7 C 89 16 110/65 96
[2018-10-03 06:48] LABS: BUN Creatinine Ratio 7.5 (10-20); Calcium 8.4 mg/dl (8.5-10.1); Creatinine Clr Calc Pharmacy 140.5 ml/min; Est GFR (African American) 121.6; Est GFR (Non-African American) 104.9; Magnesium 2.2 mg/dl (1.8-2.4); Potassium 3.8 mmol/L (3.5-5.1)
[2018-10-03] MEDS: LACTOBACILLUS ACIDOPHILUS (FLORANEX) TAB PO SCH ×4 (08:48→20:34)
[2018-10-03] MEDS: metroNIDAZOLE 500 MG TAB PO SCH ×2 (08:48→13:16)
[2018-10-03] MEDS: NYSTATIN SUSP 500,000 U/5 ML UDC PO SCH ×4 (08:49→20:34)
[2018-10-03] MEDS: ATENOLOL 25 MG TABLET PO SCH (08:49)
--- NOTE | 2018-10-03 09:34 | Hospitalist Progress Note ---
Date of Service October 03, 2018 Assessment & Plan (1) Appendicitis: Acute appendicitis Status post laparoscopic appendectomy Postop day #2 Patient tolerated procedure well, incisions CDI Advanced to full liquid diet. per surgery. Tolerating well Continue incentive spirometry and encourage ambulation for dvt ppx Recurrent diverticulitis Third episode of diverticulitis in past year Continue IV ciprofloxacin, transitioned from IV to PO Flagyl Will require at least 10-14 days of antibiotic treatment Probiotics initiated PCP Follow up 10/10/@ 10:30 In order to schedule with colorectal will need to be set up through [facility] - in process of arranging Hypokalemia secondary to loose stools, poor p.o. intake - has resolved Continue monitoring BMP NHL sp chemotherapy (currently in remission) Inappropriate sinus tachycardia Continue usual atenolol Follows Dr. Cheng Chronic anemia Hemoglobin 11.9 (11.3 yesterday), check bmp in AM Obstructive sleep apnea Continue CPAP DVT prophylaxis SCDs for now, encourage ambulation (Recommend pharmacologic anticoagulation with Lovenox 40 mg subcutaneous daily once bleeding risk is deemed to be minimal and negligible.) Thank you for this consultation. We will follow the patient with you during their hospital stay. You can reach a member of the [facility] Hospitalist Team 18/10 via pager @ [phone]. Supervising Physician Co-Signing Physician Notes Attending Addendum care coordinated with DEVIN Norris. please refer to her notes for full details, I agree with her notes patient seen and examined, records reviewed by myself as well on exam, patient seen resting in bedside chair comfortable no abdominal pain, nausea/vomiting no other symptoms VS noted and reviewed oriented x3, not in distress, speaks in sentences with no effort nor accessory muscle use normal rate, regular rhythm, no murmurs clear breath sounds bilaterally non distended, soft, nontender, surgical wounds healing well no bipedal edema, erythema, warmth no neuro deficits WBC 5.3 Hg 11.9 K 3.8 ASSESSMENT AND PLAN ACUTE APPENDICITIS S/P APPENDECTOMY remains stable overall ACUTE DIVERTICULITIS, RECURRENT on Cipro + Flagyl recommend at least 2 weeks antibiotic course referral to GI, Colorectal Surgery other diagnoses and plan of care as per DEVIN Norris notes Jamie Cueto MD Subjective Patient seen and examined sitting in bedside chair. Feeling well today. Tolerated full liquid diet for breakfast without issue. No nausea or vomiting. Had loose BM this morning. Mild surgical site tenderness. No fever, chills, chest pain, SOB, abdominal pain, dysuria or constipation. Review of Systems Review of Systems: At least ten systems reviewed and negative except as noted in the HPI. Physical Exam Physical Exam: General Appearance: WD/WN, no apparent distress, resting comfortably Head: normocephalic, atraumatic Eyes: normal inspection, PERRL, EOMI ENT: hearing grossly normal, pharynx normal (moist mucous membranes) Neck: supple, no JVD, no adenopathy Respiratory/Chest: lungs clear to auscultation. No wheezes, rales or rhonci. No respiratory distress or accessory muscle use Cardiovascular: regular rate, rhythm, no murmur, normal peripheral pulses Abdomen/GI: normal bowel sounds, soft, non-tender to palpation, healing incisions x 3 clean, dry, intact Extremities/Musculoskelatal: normal inspection, no calf tenderness, normal capillary refill, no pedal edema Neurologic/Psych: alert, normal mood/affect, oriented x 3 Skin: normal color, warm/dry Results & Data Vital Signs (Past 12 Hours) Vital Signs Temp Pulse Resp BP BP Pulse Ox 10/03/18 07:35 36.8 C 87 18 135/87 97 10/02/18 23:25 36.7 C 89 16 110/65 96 (1) Appendicitis Acute appendicitis type: unspecified acute appendicitis type Appendicitis type: acute appendicitis Qualified Code(s): K35.80 - Unspecified acute appendicitis
[2018-10-03] MEDS: ONDANSETRON INJ 2 MG/ML 2 ML VIAL IV PRN (11:42)
[2018-10-04] MEDS: CIPROFLOXACIN 400 MG/200 ML BAG IV SCH ×2 (03:26→16:38)
[2018-10-04] MEDS: metroNIDAZOLE 500 MG/100 ML BAG IV SCH ×3 (05:35→21:42)
[2018-10-04 07:17] LABS: Hematocrit (blood only) 36.2 % (37-47); Hemoglobin 11.9 g/dL (12.0-16.0); Mean Corpuscular Hgb Conc 32.9 g/dL (32-36); Mean Corpuscular Volume 83.2 fL (80-100); Mean Platelet Volume 8.8 fL (7.4-10.4); Platelet Count 156 K/uL (130-400); RDW Coefficient of Variation 15.4 % (11.5-14.5); RDW Standard Deviation 46.7 fL (36.4-46.3); Red Blood Count 4.35 M/uL (4.2-5.4); White Blood Count 3.95 K/uL (4.8-10.8)
--- NOTE | 2018-10-04 07:31 | Progress Note ---
Date of Service October 04, 2018 Assessment & Plan (1) Diverticulitis: doing well adv diet to low fiber discussed with ID- will give 1 more day IV Flagyl ( didn't patricia po ) and plan d/c tomorrow on Cipro f/u JONAH, Saad Peoples for diverticulitis Results & Data Vital Signs (Past 12 Hours) Vital Signs Temp Pulse Pulse Resp BP BP Pulse Ox 10/04/18 07:16 36.8 C 87 18 126/84 95 10/03/18 23:17 36.6 C 78 14 107/67 97
[2018-10-04 07:47] LABS: BUN Creatinine Ratio 7.5 (10-20); Calcium 8.6 mg/dl (8.5-10.1); Creatinine Clr Calc Pharmacy 167.6 ml/min; Est GFR (African American) 128.9; Est GFR (Non-African American) 111.2; Potassium 3.9 mmol/L (3.5-5.1)
--- NOTE | 2018-10-04 08:58 | Hospitalist Progress Note ---
Date of Service October 04, 2018 Assessment & Plan (1) Appendicitis: Acute appendicitis Status post laparoscopic appendectomy Postop day #3 Patient tolerated procedure well, incisions CDI Continue incentive spirometry and encourage ambulation for dvt ppx Recurrent diverticulitis Third episode of diverticulitis in past year Continue IV ciprofloxacin, did not tolerate PO Flagyl so will give one more day of IV Flagyl Dr. Ga discussed with ID. Will plan to discharge home on Cipro tomorrow with GI follow up Will require at least 10-14 days of antibiotic treatment PCP Follow up 10/10/@ 10:30 Hypokalemia secondary to loose stools, poor p.o. intake - has resolved Continue monitoring BMP NHL sp chemotherapy (currently in remission) Inappropriate sinus tachycardia Continue usual atenolol Follows Dr. Cheng Chronic anemia Hemoglobin stable at 11.9, check bmp in AM Obstructive sleep apnea Continue CPAP DVT prophylaxis SCDs for now, encourage ambulation Patient seen in collaboration with Dr. Cox. Please see addendum. Thank you for this consultation. We will follow the patient with you during their hospital stay. [facility] via pager @ [phone]. Supervising Physician Co-Signing Physician Notes I have seen and examined the patient with physician financial planning assistant and would like to comment that patient is doing well after appendectomy during the hospital stay and currently being treated for diverticulitis. I agree with the current recommendations as documented by physician financial planning assistant and current general surgery service plans Physical Exam General: no distress Neuro: no focal neurological deficits Lungs: clear to auscultation bilaterally Heart: regular rate Abdomen: soft, nontender, positive bowel sounds Extremities: moves all extremities Subjective Patient seen and examined sitting in bedside chair. Feeling well today. Advanced to low fiber diet, tolerating without issue. No nausea or vomiting. Surgical s ite tenderness improved. Ambulating around halls this morning. No fever, chills, chest pain, SOB, abdominal pain, dysuria or constipation. Review of Systems Review of Systems: At least ten systems reviewed and negative except as noted in the HPI. Physical Exam Physical Exam: General Appearance: WD/WN, no apparent distress, ambulating in the halls Head: normocephalic, atraumatic Eyes: normal inspection, PERRL, EOMI ENT: hearing grossly normal, pharynx normal (moist mucous membranes) Neck: supple, no JVD, no adenopathy Respiratory/Chest: lungs clear to auscultation. No wheezes, rales or rhonci. No respiratory distress or accessory muscle use Cardiovascular: regular rate, rhythm, no murmur, normal peripheral pulses Abdomen/GI: normal bowel sounds, soft, non-tender to palpation, healing surgical incisions Extremities/Musculoskelatal: normal inspection, no calf tenderness, normal capillary refill, no pedal edema Neurologic/Psych: alert, normal mood/affect, oriented x 3 Skin: normal color, warm/dry Results & Data Vital Signs (Past 12 Hours) Vital Signs Temp Pulse Pulse Resp BP BP Pulse Ox 10/04/18 07:16 36.8 C 87 18 126/84 95 10/03/18 23:17 36.6 C 78 14 107/67 97 Laboratory Results Short CBC 10/04/18 Range/Units 07:05 WBC 3.95 L (4.8-10.8) K/uL Hgb 11.9 L (12.0-16.0) g/dL Hct 36.2 L (37-47) % Plt Count 156 (130-400) K/uL BMP 10/04/18 07:05 Sodium 142 Potassium 3.9 Chloride 108 H Carbon Dioxide 29 BUN 4 L Creatinine 0.57 L Glucose 99 Calcium 8.6 (1) Appendicitis Acute appendicitis type: unspecified acute appendicitis type Appendicitis type: acute appendicitis Qualified Code(s): K35.80 - Unspecified acute appendicitis
[2018-10-04] MEDS: NYSTATIN SUSP 500,000 U/5 ML UDC PO SCH ×4 (09:15→21:40)
[2018-10-04] MEDS: ATENOLOL 25 MG TABLET PO SCH (09:15)
[2018-10-04] MEDS: LACTOBACILLUS ACIDOPHILUS (FLORANEX) TAB PO SCH ×4 (09:15→21:40)
[2018-10-05] MEDS: CIPROFLOXACIN 400 MG/200 ML BAG IV SCH (04:56)
[2018-10-05] MEDS: metroNIDAZOLE 500 MG/100 ML BAG IV SCH (05:00)
[2018-10-05 07:45] LABS: Hematocrit (blood only) 37.2 % (37-47); Hemoglobin 12.3 g/dL (12.0-16.0); Mean Corpuscular Hgb Conc 33.1 g/dL (32-36); Mean Corpuscular Volume 82.9 fL (80-100); Mean Platelet Volume 8.9 fL (7.4-10.4); Platelet Count 186 K/uL (130-400); RDW Coefficient of Variation 15.4 % (11.5-14.5); RDW Standard Deviation 45.7 fL (36.4-46.3); Red Blood Count 4.49 M/uL (4.2-5.4); White Blood Count 4.37 K/uL (4.8-10.8)
[2018-10-05 07:59] LABS: BUN Creatinine Ratio 9.7 (10-20); Calcium 8.8 mg/dl (8.5-10.1); Creatinine Clr Calc Pharmacy 154.1 ml/min; Est GFR (African American) 125.3; Est GFR (Non-African American) 108.1; Potassium 3.7 mmol/L (3.5-5.1)
--- NOTE | 2018-10-05 08:14 | Discharge Summary ---
PRINCIPAL DIAGNOSIS: Acute appendicitis and diverticulitis. PROCEDURES: The patient underwent laparoscopic appendectomy. HISTORY OF PRESENT ILLNESS: The patient is a 47-year-old female who had been treated for diverticulitis and began to experience severe right lower quadrant pain, diagnosed with acute appendicitis. HOSPITAL COURSE: The patient was taken to the operating room on 10/01/2018 where she underwent laparoscopic appendectomy and at that time also was visualized to have sigmoid inflammation, which was also seen on CAT scan. I felt that she required additional IV antibiotics for diverticulitis and she has been kept on those until today. She will be discharged home on ciprofloxacin to be followed in the clinic within 1-2 weeks and follow up with colorectal surgery.
[2018-10-05] MEDS: NYSTATIN SUSP 500,000 U/5 ML UDC PO SCH (08:45)
[2018-10-05] MEDS: LACTOBACILLUS ACIDOPHILUS (FLORANEX) TAB PO SCH (08:45)
[2018-10-05] MEDS: ATENOLOL 25 MG TABLET PO SCH (08:45)
== END 2018-10-05 10:04 | disposition home or self-care (01) | DRG 342 ==
LOC: ED 23:42 → OR 10-01 04:48 → 3W 10-01 04:55